=== PATIENT | male | born 1955 | race Two or more races ===

== ENCOUNTER 2018-04-20 04:21 | Emergency (ER) | payer OTHER ==
[~2018-04-20] VITALS: Ht 165.1 cm; Wt 85.8 kg
[2018-04-20 04:37] VITALS: BP 149/93
== END 2018-04-20 06:59 | disposition left against medical advice (07) ==
LOC: ER 04:21
DX: R05 Cough (principal); Z53.21 Procedure and treatment not carried out due to patient leaving prior to being seen by health care provider
CPT/HCPCS: 93005

== ENCOUNTER 2018-12-21 21:08 | Emergency (ER) | payer OTHER ==
[~2018-12-21] VITALS: Ht 165.1 cm; Wt 90.7 kg
[2018-12-21 21:28] VITALS: BP 159/80
[2018-12-21 21:40] LABS: Urine WBC None Seen /hpf (0 - 3)
[2018-12-21 21:48] LABS: Urine Bacteria NONE SEEN /hpf (None Seen); Urine Blood Negative /uL (Negative); Urine Specific Gravity 1.002 (1.001-1.035)
[2018-12-21 22:55] LABS: Basophils # (auto) 0.1 uL; Basophils % (auto) 0.7 % (0.0-2.0); Eosinophils # (auto) 0.1 uL; Eosinophils % (auto) 0.9 % (0.0-7.0); Hematocrit 44.4 % (41.0-53.0); Hemoglobin 15.2 g/dL (13.5-17.5); Lymphocytes # (auto) 2.1 uL; Mean Corpuscular Hemoglobin 27.8 pg (28.0-32.0); Mean Corpuscular Hgb Conc. 34.2 g/dL (32.0-36.0); Mean Corpuscular Volume 81.4 fL (80.0-100.0); Monocytes # (auto) 0.5 uL; Monocytes % (auto) 5.6 % (0.0-12.0); Neutrophils # (auto) 5.4 uL; Neutrophils % (auto) 66.8 % (37.0-80.0); Nucleated Red Blood Cells % 0.1 %; Platelet Count (auto) 245 10^3/uL (140-450); Red Blood Cells 5.45 10^6/uL (4.5-5.90)
[2018-12-21 23:13] LABS: Albumin 3.9 g/dL (3.4-5.0); Calcium 9.4 mg/dL (8.5-10.1); Potassium 4.3 mmol/L (3.5-5.1)
[2018-12-21 23:15] LABS: BUN/Creatinine Ratio 12.3; Bilirubin, Total 0.4 mg/dL (0.2-1.0); Total Protein 7.9 g/dL (6.4-8.2)
[2018-12-22] MEDS ORDERED: METF-370 PO (18:57)
[2018-12-22] MEDS ORDERED: TEMA15CA91 PO (18:57)
[2018-12-22] MEDS ORDERED: GLIP10TA9 PO (18:57)
== END 2018-12-22 02:53 | disposition left against medical advice (07) ==
LOC: ER 21:11
DX: R42 Dizziness and giddiness (principal); R51 Headache; M54.2 Cervicalgia; Z53.21 Procedure and treatment not carried out due to patient leaving prior to being seen by health care provider
CPT/HCPCS: 36415; 70450; 80053; 81001; 82962; 85025

== ENCOUNTER 2018-12-22 06:26 | Inpatient (IN) | payer OTHER ==
[~2018-12-22] VITALS: Ht 165.1 cm; Wt 87.5 kg
[2018-12-22 16:22] LABS: Basophils # (auto) 0 uL; Basophils % (auto) 0.5 % (0.0-2.0); Eosinophils # (auto) 0.1 uL; Eosinophils % (auto) 1.7 % (0.0-7.0); Hematocrit 44.2 % (41.0-53.0); Hemoglobin 14.8 g/dL (13.5-17.5); Lymphocytes # (auto) 1.8 uL; Lymphocytes % (auto) 34.7 % (10.0-50.0); Mean Corpuscular Hemoglobin 27.4 pg (28.0-32.0); Mean Corpuscular Hgb Conc. 33.5 g/dL (32.0-36.0); Mean Corpuscular Volume 81.8 fL (80.0-100.0); Monocytes # (auto) 0.3 uL; Monocytes % (auto) 6.5 % (0.0-12.0); Neutrophils % (auto) 56.6 % (37.0-80.0); Nucleated Red Blood Cells % 0.1 %; Platelet Count (auto) 227 10^3/uL (140-450); Red Cell Distribution Width 14.4 % (11.8-14.3); White Blood Cell 5.2 10^3/uL (4.4-10.8)
[2018-12-22 16:28] LABS: Albumin 3.6 g/dL (3.4-5.0); Calcium 8.8 mg/dL (8.5-10.1); Potassium 4.5 mmol/L (3.5-5.1)
[2018-12-22 16:32] LABS: BUN/Creatinine Ratio 11.5; Bilirubin, Total 0.4 mg/dL (0.2-1.0); Total Protein 7.8 g/dL (6.4-8.2)
[2018-12-22] MEDS ORDERED: DEXTROSE (50%) 50ML SYRG IV PRN (17:30)
[2018-12-22] MEDS ORDERED: LACTULOSE 20Gm/30ML SOLN PO PRN (17:30)
[2018-12-22] MEDS ORDERED: LABETALOL HCL 5 MG/ML ML 20ML VIAL IV PRN (17:30)
[2018-12-22] MEDS ORDERED: NITROGLYCERIN 0.4 MG SL TAB SL PRN (17:30)
[2018-12-22] MEDS ORDERED: MORPHINE SULF INJ 2 MG/ML SYRINGE 1ML IV PRN (17:30)
[2018-12-22] MEDS ORDERED: traMADol HCL 50 MG TAB PO PRN (17:30)
[2018-12-22] MEDS ORDERED: ACETAMINOPHEN 500 MG TAB PO PRN (17:30)
[2018-12-22] MEDS: ASPirin 81 mg TAB PO SCH (17:30)
[2018-12-22] MEDS ORDERED: ASPirin 81 mg TAB PO ONE (17:30)
[2018-12-22] MEDS ORDERED: PROMETHAZINE HCL 25 MG/ML 1ML IV PRN (17:30)
[2018-12-22] MEDS ORDERED: TEMAZEPAM 15 MG CAP PO PRN (17:30)
[2018-12-22 17:54] LABS: Creatine Kinase IFCC 60 U/L (39-308)
[2018-12-22] MEDS: ENOXAPARIN SOD 40 MG/0.4 ML SYRINGE SC SCH (18:12)
[2018-12-22] MEDS: SODIUM CHLORIDE 0.9% 1,000 ML IV SCH (18:12)
--- NOTE | 2018-12-22 18:52 | NUR ---
Telemetry admit from [facility] admitted to Telemetry unit after SBAR received. Patient oriented to Yandy hernández RN, unit, room, bed, and unit policies regarding patient care and visiting hours. Patient now on continuous telemetry monitoring, tele box #[id number] and telemetry reading on arrival to unit is SINUS PERNELL IN THE 50'S. Patient weighed by bedscale and encouraged to call if they need something. All questions and
[2018-12-22] MEDS ORDERED: METF-370 PO (18:57)
[2018-12-22] MEDS ORDERED: GLIP10TA9 PO (18:57)
[2018-12-22] MEDS ORDERED: TEMA15CA91 PO (18:57)
--- NOTE | 2018-12-22 19:40 | NUR ---
Opening Shift Note Assumed care of patient, awake and alert. Patient speaking, translation provided by MICHAEL James. No S/S of distress/SOB or pain. Bed in lowest locked position, side rails up x2, call light within reach, bed alarm on. Instructed on POC and to call for assist PRN, will continue to monitor for changes Q1hr and PRN.
[2018-12-22] MEDS: ACCU-CHEK COMFORT CURVE STRIP VI SCH (20:00)
[2018-12-22] MEDS: InsuLIN REG 1unit/0.01ml Soln (100units/ml) SC SCH (20:48)
[2018-12-22 22:00] VITALS: BP 150/85
[2018-12-22] MEDS ORDERED: ATORVASTATIN 20 MG TAB PO SCH (22:00)
[2018-12-23] MEDS: ACCU-CHEK COMFORT CURVE STRIP VI SCH ×4 (00:03→11:55)
[2018-12-23] MEDS: InsuLIN REG 1unit/0.01ml Soln (100units/ml) SC SCH ×4 (00:03→11:55)
[2018-12-23 05:00] VITALS: BP 159/88
[2018-12-23] MEDS: SODIUM CHLORIDE 0.9% 1,000 ML IV SCH (05:24)
[2018-12-23 06:23] LABS: Cholesterol 145 mg/dL (< 200); HDL Cholesterol 30 mg/dL (40-59); LDL Cholesterol 95 mg/dL (< 100); Triglycerides 172 mg/dL (< 150)
--- NOTE | 2018-12-23 07:00 | NUR ---
Closing Note Urine sample collected and sent. Patient lying in bed, awake and alert. Bed in lowest locked position, side rails up x2, call light within reach, bed alarm on. No s/s of distress. Blood pressure noted to be elevated at 159/88, fluids held at this time, dayshift RN aware. Care endorsed to dayshift RN.
[2018-12-23 07:37] LABS: Urine Bacteria NONE SEEN /hpf (None Seen); Urine Blood Negative /uL (Negative); Urine Mucus FEW (None Seen); Urine Specific Gravity 1.024 (1.001-1.035); Urine WBC 2 /hpf (0 - 3)
[2018-12-23 07:51] LABS: Alcohol, Urine < 3.0 mg/dL (0-5); Amphetamine Screen, Urine NEGATIVE (NEGATIVE); Barbiturate Scree,Urine NEGATIVE (NEGATIVE); Benzodiazephine Screen, Urine NEGATIVE (NEGATIVE); Cannabinoid Screen, Urine NEGATIVE (NEGATIVE); Cocaine Screen, Urine NEGATIVE (NEGATIVE); Opiate Scree,Urine NEGATIVE (NEGATIVE); Phencyclidine Screen, Urine NEGATIVE (NEGATIVE)
[2018-12-23 08:00] VITALS: BP 158/92
[2018-12-23 08:45] VITALS: BP 158/92
[2018-12-23] MEDS ORDERED: PANTOPRAZOLE 40 MG TAB PO SCH (10:00)
[2018-12-23] MEDS: ENOXAPARIN SOD 40 MG/0.4 ML SYRINGE SC SCH (10:13)
[2018-12-23] MEDS: ASPirin 81 mg TAB PO SCH (10:14)
[2018-12-23 13:00] VITALS: BP 160/94
--- NOTE | 2018-12-23 14:36 | NUR ---
Discharge instructions given as ordered. Encourage to follow up with PMD as instructed. All questions and concerns addressed. Patient verbalized understanding. Medication reconciliation form completed and copy given to patient. Home medications held in Pharmacy returned to patient, and needed vaccines given. IV removed with catheter intact, pressure dressing applied. Telemetry unit returned to ICU. Patient taken to vehicle via wheelchair with all personal belongings, accompanied by staff. Patient drove himself home. No distress noted at time of departure.
== END 2018-12-23 13:50 | disposition home or self-care (01) | DRG 638 ==
LOC: ER 06:26 → TELE-WESTW 06:27 → ER 11:40 → TELE-WESTW 19:03
PROVIDERS: ADMIT Internal Medicine; ATTEND Internal Medicine
DX: E11.65 Type 2 diabetes mellitus with hyperglycemia (principal); G45.9 Transient cerebral ischemic attack, unspecified; E87.1 Hypo-osmolality and hyponatremia; I10 Essential (primary) hypertension; E66.9 Obesity, unspecified; E78.5 Hyperlipidemia, unspecified; E78.1 Pure hyperglyceridemia; Z91.14 Patient's other noncompliance with medication regimen; Z68.32 Body mass index [BMI] 32.0-32.9, adult
CPT/HCPCS: 36415; 71045; 80053; 80061; 80307; 81001; 82550; 82962; 83036; 84484; 85025; 85652; 93005; 96360; 96372; G0378; J1815

== ENCOUNTER 2019-09-25 20:57 | Emergency (ER) | payer OTHER ==
[~2019-09-25] VITALS: Ht 165.1 cm; Wt 88.5 kg
[~2019-09-25 20:57] MED LIST: GLIP10TA9 PO; METF-370 PO; TEMA15CA91 PO
[2019-09-25 21:30] VITALS: BP 155/71
[2019-09-26] MEDS ORDERED: KETOROLAC TROMETH 60MG/2ML VIAL IM ONE (01:15)
== END 2019-09-26 01:36 | disposition home or self-care (01) ==
LOC: ER 20:57
DX: R51 Headache (principal); M50.30 Other cervical disc degeneration, unspecified cervical region; E11.9 Type 2 diabetes mellitus without complications; E78.5 Hyperlipidemia, unspecified; I10 Essential (primary) hypertension
CPT/HCPCS: 70450; 72125; 82962; 96372; 99285; J1885

== ENCOUNTER 2019-10-09 04:13 | Emergency (ER) | payer OTHER ==
[~2019-10-09] VITALS: Ht 165.1 cm; Wt 86.2 kg
[2019-10-09 04:40] VITALS: BP 144/81
== END 2019-10-09 05:27 | disposition left against medical advice (07) ==
LOC: ER 04:13
DX: F41.9 Anxiety disorder, unspecified (principal); Z53.21 Procedure and treatment not carried out due to patient leaving prior to being seen by health care provider

== ENCOUNTER 2019-10-09 14:37 | Emergency (ER) | payer OTHER ==
[~2019-10-09] VITALS: Ht 165.1 cm; Wt 86.2 kg
[2019-10-09 15:03] VITALS: BP 163/92
== END 2019-10-09 19:32 | disposition left against medical advice (07) ==
LOC: ER 14:37
DX: F41.9 Anxiety disorder, unspecified (principal); Z53.21 Procedure and treatment not carried out due to patient leaving prior to being seen by health care provider

== ENCOUNTER 2019-10-10 18:21 | Emergency (ER) | payer OTHER ==
[~2019-10-10] VITALS: Ht 165.1 cm; Wt 86.2 kg
[2019-10-10 18:44] VITALS: BP 173/86
[2019-10-10] MEDS ORDERED: KETOROLAC TROMETH 60MG/2ML VIAL IM ONE (20:00)
[2019-10-10 22:30] LABS: Basophils # (auto) 0 10 ^3/uL (0-0.2); Basophils % (auto) 0.3 % (0.0-2.0); Eosinophils # (auto) 0.1 10 ^3/uL (0-0.8); Eosinophils % (auto) 1.3 % (0.0-7.0); Hematocrit 44.7 % (41.0-53.0); Lymphocytes # (auto) 2.5 10 ^3/uL (0.4-5.4); Lymphocytes % (auto) 32.3 % (10.0-50.0); Mean Corpuscular Hemoglobin 27.4 pg (28.0-32.0); Mean Corpuscular Hgb Conc. 33.5 g/dL (32.0-36.0); Mean Corpuscular Volume 81.7 fL (80.0-100.0); Monocytes # (auto) 0.7 10 ^3/uL (0-1.3); Monocytes % (auto) 8.7 % (0.0-12.0); Neutrophils # (auto) 4.5 10 ^3/uL (1.6-8.6); Neutrophils % (auto) 57.4 % (37.0-80.0); Nucleated Red Blood Cells % 0.4 %; Platelet Count (auto) 268 10^3/uL (140-450); Red Blood Cells 5.47 10^6/uL (4.5-5.90); White Blood Cell 7.8 10^3/uL (4.4-10.8)
[2019-10-10 22:43] LABS: Calcium 9.6 mg/dL (8.5-10.1)
[2019-10-10 22:48] LABS: Albumin 4.6 g/dL (3.4-5.0); BUN/Creatinine Ratio 18.1; Bilirubin, Total 0.5 mg/dL (0.2-1.0); Total Protein 8.9 g/dL (6.4-8.2)
== END 2019-10-10 23:15 | disposition home or self-care (01) ==
LOC: ER 18:21
DX: B02.9 Zoster without complications (principal)
CPT/HCPCS: 36415; 80053; 85025; 96372; 99283; J1885

== ENCOUNTER 2022-12-26 17:44 | Emergency (ER) | payer MEDICARE, OTHER ==
[~2022-12-26] VITALS: Ht 165.1 cm; Wt 88.5 kg
[~2022-12-26 17:44] MED LIST changes: +TEMA15CA2 PO; -TEMA15CA91 PO
[2022-12-26] MEDS ORDERED: SODIUM CHLORIDE 0.9% 500 ML IV ONE (18:30)
[2022-12-26] MEDS ORDERED: InsuLIN REG 1unit/0.01ml Soln (100units/ml) IV ONE (18:30)
[2022-12-26 19:18] LABS: Basophils # (auto) 0 10 ^3/uL (0-0.2); Basophils % (auto) 0.7 % (0.0-2.0); Eosinophils # (auto) 0.2 10 ^3/uL (0-0.8); Eosinophils % (auto) 3.2 % (0.0-7.0); Hemoglobin 14.1 g/dL (13.5-17.5); Lymphocytes # (auto) 2.2 10 ^3/uL (0.4-5.4); Lymphocytes % (auto) 35.1 % (10.0-50.0); Mean Corpuscular Hgb Conc. 33.5 g/dL (32.0-36.0); Mean Corpuscular Volume 83.6 fL (80.0-100.0); Monocytes # (auto) 0.5 10 ^3/uL (0-1.3); Monocytes % (auto) 7.3 % (0.0-12.0); Neutrophils # (auto) 3.4 10 ^3/uL (1.6-8.6); Neutrophils % (auto) 53.7 % (37.0-80.0); Red Blood Cells 5.02 10^6/uL (4.5-5.90); Red Cell Distribution Width 14.5 % (11.8-14.3); White Blood Cell 6.3 10^3/uL (4.4-10.8)
[2022-12-26 19:36] LABS: Alanine Aminotransferase 50 U/L (7-40); Albumin 4.4 g/dL (3.2-4.8); Alkaline Phosphatase 79 U/L (46-116); Anion Gap 4 (5-15); Aspartate Aminotransferase 32 U/L (13-40); BUN/Creatinine Ratio 21.4 (10.0-20.0); Bilirubin, Total 0.3 mg/dL (0.2-1.0); Blood Urea Nitrogen 28 mg/dL (9-23); Calcium 9.6 mg/dL (8.7-10.4); Carbon Dioxide 28 mmol/L (20-30); Chloride 100 mmol/L (98-107); Glucose 392 mg/dL (74-106); Potassium 4.9 mmol/L (3.5-5.1); Sodium 132 mmol/L (136-145); Total Protein 7.1 g/dL (5.7-8.2)
[2022-12-26] MEDS ORDERED: SITA100T7 PO (20:53)
[2022-12-26 21:13] LABS: Urine Bacteria NONE SEEN /hpf (None Seen); Urine Blood Negative /uL (Negative); Urine Clarity Clear (Clear); Urine Color Yellow (Yellow); Urine Protein, UAD Negative (Negative); Urine Specific Gravity 1.029 (1.001-1.035); Urine Urobilinogen Normal (Negative); Urine WBC 1 /hpf (0 - 3)
[2022-12-26 21:25] VITALS: BP 134/77; PULSE 63; RESP 20; TEMP 97.7; O2SAT 96
== END 2022-12-26 21:29 | disposition home or self-care (01) ==
LOC: ER 17:44
DX: E11.65 Type 2 diabetes mellitus with hyperglycemia (principal); I10 Essential (primary) hypertension; E78.5 Hyperlipidemia, unspecified; Z79.84 Long term (current) use of oral hypoglycemic drugs; Z79.899 Other long term (current) drug therapy
CPT/HCPCS: 36415; 80053; 81001; 82962; 85025; 99283; J1815

== ENCOUNTER 2023-04-04 20:55 | Emergency (ER) | payer MEDICARE, MEDICAID ==
[~2023-04-04] VITALS: Ht 165.1 cm; Wt 85.0 kg
[~2023-04-04 20:55] MED LIST changes: +SITA100T7 PO
[2023-04-04 21:49] LABS: Urine Bacteria FEW /hpf (None Seen); Urine Blood Negative /uL (Negative); Urine Clarity Clear (Clear); Urine Color Yellow (Yellow); Urine Protein, UAD Negative (Negative); Urine Specific Gravity 1.021 (1.001-1.035); Urine Urobilinogen Normal (Negative); Urine WBC 2 /hpf (0 - 3)
[2023-04-05] MEDS ORDERED: DOXY-286 PO ×3 (00:13→00:45)
[2023-04-05] MEDS ORDERED: ACET-6 PO ×3 (00:13→00:45)
[2023-04-05 00:37] VITALS: BP 139/70
[2023-04-05 00:39] VITALS: PULSE 54; RESP 18; O2SAT 97
== END 2023-04-05 00:48 | disposition home or self-care (01) ==
LOC: ER 20:55
DX: N43.3 Hydrocele, unspecified (principal); I10 Essential (primary) hypertension; E11.9 Type 2 diabetes mellitus without complications; E78.5 Hyperlipidemia, unspecified; Z79.2 Long term (current) use of antibiotics; Z79.899 Other long term (current) drug therapy
CPT/HCPCS: 76870; 81001

== ENCOUNTER 2024-05-17 21:09 | Emergency (ER) | payer OTHER, MEDICAID ==
[~2024-05-17] VITALS: Ht 165.1 cm; Wt 86.5 kg
[~2024-05-17 21:09] MED LIST changes: +ACET-6 PO; +DOXY-286 PO
--- NOTE | 2024-05-17 21:39 | ED.PDOC ---
General HPI Comments HPI: Poor Historian. 69-year-old male presents to ED for evaluation of two week history of right flank pain nonradiating constant. No other alleviating or precipitating factors. Denies any urinary symptoms. PMHX:DM, High Lipids and HTN SHX: Denies Any REVIEW OF SYSTEMS: CONSTITUTIONAL: Denies acute: fever, diaphoresis, chills, generalized weakness. HEAD: Denies acute: headache, photophobia Eyes: Denies acute: Double vision, vision loss, eye pain, eye discharge. EARS: Denies acute: tinnitus, hearing loss, ear discharge, ear pain, THROAT: Denies acute: sore throat, swelling, difficulty swallowing , pain with swallowing, change in voice. NECK: Denies acute: neck pain, neck swelling, stiff neck. HEART: Denies acute : chest pain, palpitations, LUNGS: Denies acute: SOB, wheezing, cough, hemoptysis ABDOMEN: Denies acute: abdominal pain, Nausea, Vomiting, diarrhea, melena , hematemesis, hematochezia SKIN: Denies acute: rash, redness, lesions, itchiness. EXTREMITIES: Denies acute: calf pain, numbness, tingling, weakness, denies pain in extremity. Denies acute: Low back pain. Neuro: Denies acute: focal neurological deficit, motor or sensory focal neurological deficit, tremors, seizure like activity, confusion, dizziness, change in mental status, loss of bowel or bladder function, cauda equina like symptoms. : Denies acute: dysuria, hematuria, increase in urinary frequency. PSYCH: Denies acute: hallucination, suicidal ideation, homicidal ideation. PHYSICAL EXAM: General: no acute distress, awake and alert. Head: normocephalic, atraumatic. Neck: supple, trachea is midline, no swelling. Throat: Normal phonation. Eyes:, no erythema, no purulent discharge, no proptosis, no icterus. Heart: regular rate, regular rhythm, no significant murmur appreciated. Lungs: no apparent respiratory distress, Able to speak in full sentences. No wheezing, no rhonchi, no crackles. No stridors Clear to auscultation bilaterally. Abdomen: non tender to palpation, non distended, soft, no guarding, no rebound, + bowel sounds. Neuro: Awake, Alert, oriented to name, self, situation, follows commands GCS=15. Speech is normal. Skin: no petechia, no purpura, no cyanosis, non-pale, not jaundice. Lower extremities: --no - Pitting edema no deformity, no focal swelling, no calf TTP. Makes eye contact. moves all four extremities. Face: no apparent facial droop. Right CVA tenderness to percussion . Ambulating in the ED independently. ED COURSE: Chief Complaint: Flank Pain Time Seen by MD: 21:25 Primary Care Provider: UNKNOWN Reviewed notes: Nurses Notes, Medications, Allergies Allergies: Coded Allergies: NO KNOWN ALLERGIES (Unverified , 04/20/18) Home Meds Active Scripts Doxycycline Hyclate (DOXYCYCLINE HYCLATE) 100 Mg Tab, 1 TAB PO BID for 10 Days, #20 TAB Prov:RAIMUNDOLENKADewayneELISABETAaron S DO 04/05/23 Acetaminophen (Acetaminophen Extra Stren) 500 Mg Tab, 500 MG PO QIDPRN for 10 Days, #40 TAB Prov:JOSE LUISLOREEYAMIL S DO 04/05/23 Sitagliptin Phosphate (Januvia) 100 Mg Tab, 1 TAB PO DAILY, #90 TAB 1 Refill Prov:ZEUS GARCIA MD 12/26/22 Reported Medications Temazepam (Restoril) 15 Mg Cp, 1 CAP PO QPM, #30 CAP 1 Refill 12/22/18 Metformin Hydrochloride (Metformin Hcl) 500 Mg Tab, 1000 MG PO BID for 30 Days, MG 12/22/18 Glipizide (Glipizide) 10 Mg Tab, 40 MG PO BID for 30 Days, MG 12/22/18 Information Source: Patient Mode of Arrival: Ambulatory Severity: Moderate Timing: Weeks Duration: Since onset Prehospital treatment: None Onset: Spontaneous Symptoms: None History of: None Location: (R) Flank Penile discharge: None associated signs and symptoms: Flank Pain Past Medical History PAST MEDICAL HISTORY: DM, High Lipids, HTN Surgical History: Denies all surgeries Family History Family History: Reviewed,noncontributory to illness, Unknown Social History Smoker: Non-Smoker Alcohol: Denies ETOH Use Drugs: Denies Drug Use Lives In: Home Was a procedure done? Was a procedure done?: No Differential Diagnosis Kidney stone (Female): N/A Kidney stone (Male): Other (Flank Pain;DDX include Nephrolethiasis, obstructive uropathy, kidney cancer, renal infarct, intraabdominal neoplasm, lower lobe pneumonia, retroperitoneal hemorrhage, pancreatitis, aneurysm, dissection, musculoskeletal, rib contusion/trauma, hematoma, PYLONEPHRITIS, muscle strain, spinal disease.) X-Ray, Labs, Meds, VS Vital Signs Date Time Temp Pulse Resp B/P (MAP) Pulse Ox O2 Delivery O2 Flow Rate FiO2 05/18/24 01:19 67 16 154/71 (98) 96 05/17/24 21:28 98.7 69 18 137/114 (122) 96 Lab Test 05/17/24 21:53 05/17/24 21:30 Range/Units White Blood Count 7.6 4.4-10.8 10^3/uL Red Blood Count 4.97 4.5-5.90 10^6/uL Hemoglobin 14.1 13.5-17.5 g/dL Hematocrit 40.5 L 41.0-53.0 % Mean Corpuscular Volume 81.4 80.0-100.0 fL Mean Corpuscular Hemoglobin 28.4 28.0-32.0 pg Mean Corpuscular Hemoglobin Concent 34.8 32.0-36.0 g/dL Red Cell Distribution Width 14.9 H 11.8-14.3 % Platelet Count 266 140-450 10^3/uL Mean Platelet Volume 7.1 6.9-10.8 fL Neutrophils (%) (Auto) 46.9 37.0-80.0 % Lymphocytes (%) (Auto) 42.6 10.0-50.0 % Monocytes (%) (Auto) 8.2 0.0-12.0 % Eosinophils (%) (Auto) 1.7 0.0-7.0 % Basophils (%) (Auto) 0.6 0.0-2.0 % Neutrophils # (Auto) 3.6 1.6-8.6 10 ^3/uL Lymphocytes # (Auto) 3.3 0.4-5.4 10 ^3/uL Monocytes # (Auto) 0.6 0-1.3 10 ^3/uL Eosinophils # (Auto) 0.1 0-0.8 10 ^3/uL Basophils # (Auto) 0 0-0.2 10 ^3/uL Nucleated Red Blood Cells 0.0 % Sodium Level 140 136-145 mmol/L Potassium Level 4.5 3.5-5.1 mmol/L Chloride Level 104 98-107 mmol/L Carbon Dioxide Level 28 20-31 mmol/L Anion Gap 8 5-15 Blood Urea Nitrogen 13 9-23 mg/dL Creatinine 1.22 0.700-1.30 mg/dL Glomerular Filtration Rate Calc 63 >90 mL/min BUN/Creatinine Ratio 10.7 10.0-20.0 Serum Glucose 98 74-106 mg/dL Lactic Acid Level 1.2 0.4-2.0 mmol/L Calcium Level 10.7 H 8.7-10.4 mg/dL Total Bilirubin 0.3 0.2-1.0 mg/dL Aspartate Amino Transferase (AST) 22 13-40 U/L Alanine Aminotransferase (ALT) 33 7-40 U/L Alkaline Phosphatase 83 46-116 U/L Troponin I High Sensitivity 8 </=54 ng/L Total Protein 7.8 5.7-8.2 g/dL Albumin 4.9 H 3.2-4.8 g/dL Lipase 59 H 12-53 U/L Urine Color Light-yellow Yellow Urine Clarity Clear Clear Urine pH 5.5 5.0-9.0 Urine Specific [place] 1.020 1.001-1.035 Urine Protein Negative Negative Urine Ketones Negative Negative Urine Blood Negative Negative /uL Urine Nitrite Negative Negative Urine Bilirubin Negative Negative Urine Urobilinogen Normal Negative mg/dL Urine Leukocyte Esterase Negative Negative /uL Urine RBC 1 0 - 3 /hpf Urine Microscopic WBC < 1 0-3 /HPF Urine Squamous Epithelial Cells None seen <5 /hpf Urine Bacteria None seen None Seen /hpf Urine Glucose Normal Normal mg/dL Current Medications Medications (Trade) Dose Ordered Sig/Abril Route Start Time Stop Time Status Last Admin Acetaminophen/ Hydrocodone Bitart ([place] 5/325MG Tab) 1 tab ONCE ONCE PO 05/17/24 23:15 05/17/24 23:16 DC 05/18/24 01:[address] [address] Ph: [phone] DIAGNOSTIC IMAGING Diagnostic Imaging Report : [id number] Signed PATIENT: WHEELERTONE ADRIAN ACCT: [id number] UNIT: [id number] : 1955 LOC: ER ROOM / BED: / AGE / SEX: 69 / M ADM STATUS: REG ER SERVICE 36 ORDERING PHYSICIAN: RASHAUN CARBAJAL DO PROCEDURE(s): ABPL - CT AB PEL WO CON-NO ORAL OR IV REASON: R flank pain ORDER NUMBER(s): [id number], ACCESSION NUMBER(s): [id number] Exam: CT AB PEL WO CON-NO ORAL OR IV History: R flank pain Comparison Study: None Contrast: None TECHNIQUE: Multidetector CT of abdomen and pelvis without IV contrast. Radiation Dose Information: CT Dose: CTDI volume is 15.6 mGy. Dose-length product is 970.29 mGy*cm FINDINGS: Lung bases demonstrate a nodule in the lateral left lower lobe measures 5.8 mm[address] Follow-up CT examination of the chest is suggested for further assessment. Heart is slightly enlarged and there is atherosclerotic disease involving the coronary arteries lower esophagus is unremarkable. There is bilateral minimal perinephric stranding. The spleen is unremarkable. Stomach is filled with material. Gallbladder demonstrates a possible tiny polyp seen on image 36 of the axial images. Adrenals are unremarkable. Pancreas is unremarkable. Common bile duct is prominent measuring 11.8 mm in caliber which is abnormal I do not see a definite obstruction of the common bile. Head of the pancreas is normal. The appendix is normal. The terminal ileum is unremarkable. Bladder and prostate appear to be within normal limits. There is fat in the inguinal canals bilaterally there are multiple diverticuli in the descending colon without definite diverticulitis sigmoid colon is normal. Liver is 17.9 cm in span which is still within normal limits use 18.[address] is a cutoff hepatomegaly. There are degenerative changes involving the anterior inferior iliac spines patient has some evidence for disc disease involving the lumbosacral thoracic spine. The spleen is enlarged 13.6 cm. Pancreas is unremarkable. There are patchy calcifications abdominal aorta in the renal arteries and in the common iliacs. No aneurysm. IMPRESSION: Diverticulosis .Enlarged Spleen. Generalized catherosclerosis involving the coronary arteries also the abdominal aorta and its branches. ATED BY: SAMUEL LÓPEZ MD DICTATED DATE/TIME: 05/17/242207 SIGNED BY: SAMUEL LÓPEZ MD SIGNED DATE/TIME: 05/17/242207 CC: Time of 1ST Reevaluation: 21:55 Reevaluation 1ST: Unchanged Patient Education/Counseling: Diagnosis, Treatment Family Education/Counseling: No Family Present Comments Patient presented with the above HPI.-flank pain-----workup was initiated. patient was found with the above mentioned diagnosis. the following medications were ordered: please refer to order lists of meds and tests obtained by myself Dr. Carbajal. Patient ED course and VS have been stabilized. Patient has been reassessed in the ED and remained in a stable condition. Pertinent incidental findings were discussed with the patient and/or family. Patient/family voices understanding and is agreeable with plan. Patient has been observed in the ED adequate length of time to insure improvement/stability. Escalation of care considered: Consideration of escalation to observation or admission Patient was DISCHARGED home in a stable condition. All the reports of any imaging studies that were ordered by myself were reviewed by myself. Departure 1 Departure Time of Disposition: 23:03 Impression: Primary Impression: Right flank pain Additional Impression: Spleen enlarged Disposition: 01 HOME / SELF CARE / HOMELESS Condition: Stable Additional Instructions: Additional discharge instructions: You MUST follow-up with your primary care/family doctor in 1 to 2 days. If you are unable to see your primary care/family doctor, please return to our emergency room for re-assessment and re-evaluation in 1 to 2 days. Return to the emergency room here in our facility or to the nearest ER [facility] if your symptoms change or worsen. CONSULTATIONS: you MUST Follow-up for consultation as soon as possible with: -urology in 1-2 days. Please call for appointment. You MUST call the consultants office yourself to make an appointment. You may need to arrange that through your insurance and/or your primary/family doctor. If you are unable to see the relationship consultant in 1 to 2 days, you must return to our emergency room (or any other ER of your choice) for re-assessment and re- evaluation. Adequate fluid hydration. Below is a copy of your radiological report for follow up: [address] [address] Ph: [phone] DIAGNOSTIC IMAGING Diagnostic Imaging Report : [id number] Signed PATIENT: TRISTA GARDNER ACCT: [id number] UNIT: [id number] : 11/01/1991 LOC: ER ROOM / BED: / AGE / SEX: 32 / M ADM STATUS: REG ER SERVICE 1742 ORDERING PHYSICIAN: RASHAUN CARBAJAL DO PROCEDURE(s): ABPLIV - CT AB PEL WITH IV CON ONLY REASON: rectal bleed ORDER NUMBER(s): [id number], ACCESSION NUMBER(s): [id number] Exam: CT AB PEL WITH IV CON ONLY History: rectal bleed Comparison Study: None Contrast: Type of contrast: Contrast injected: Contrast wasted: 0 TECHNIQUE: Multidetector CT of abdomen and pelvis IV contrast. Radiation Dose Information: CT Dose: CTDI volume is 24.43 mGy. Dose-length product is 1600.48 mGy*cm FINDINGS: Lung bases are clear. Heart size is normal. Lower esophagus is still probably normal Patient has a diffusely fatty infiltrated liver Spleen is enlarged at 13.94 cm. Pancreas is unremarkable gallbladder is unremarkable. Common bile duct is normal. Adrenals kidneys are normal. The appendix is unremarkable. Bladder: Small bowel are normal. Liver is enlarged 20.4 cm. Duodenum is normal stomach mucosa is unremarkable.. Bone density is normal no focal lesions in the IMPRESSION: 1. Hepatosplenomegaly and diffusely fatty infiltrated liver. ATED BY: SAMUEL LÓPEZ MD DICTATED DATE/TIME: 05/17/242042 SIGNED BY: SAMUEL LÓPEZ MD SIGNED DATE/TIME: 05/17/242042 CC: Discharged With: Self Critical Care Note Critical Care Time?: No I personally scribed for RASHAUN CARBAJAL DO ([email or web address]) on 05/17/24 at 21:39. Electronically submitted by Warren Philippe ([email or web address]). I personally scribed for RASHAUN CARBAJAL DO ([email or web address]) on 05/17/24 at 23:38. Electronically submitted by Khari Do ([email or web address]). RASHAUN CARBAJAL DO May 17, 2024 21:39
[2024-05-17 21:44] LABS: Urine Bacteria None Seen /hpf (None Seen)
[2024-05-17 21:57] LABS: Urine Blood Negative /uL (Negative); Urine Clarity Clear (Clear); Urine Color Light-Yellow (Yellow); Urine Protein, UAD Negative (Negative); Urine Squamous Epithelial Cell None Seen /hpf (<5); Urine Urobilinogen Normal (Negative); Urine WBC < 1 /HPF (0-3); Urine pH 5.5 (5.0-9.0)
--- NOTE | 2024-05-17 22:10 | DVH ---
Exam: CT AB PEL WO CON-NO ORAL OR IV History: R flank pain Comparison Study: None Contrast: None TECHNIQUE: Multidetector CT of abdomen and pelvis without IV contrast. Radiation Dose Information: CT Dose: CTDI volume is 15.6 mGy. Dose-length product is 970.29 mGy*cm FINDINGS: Lung bases demonstrate a nodule in the lateral left lower lobe measures 5.8 mm[address] Follow-up CT examina tion of the chest is suggested for further assessment. Heart is slightly enlarged and there is atherosclerotic disease involving the coronary arteries lower esophagus is unremarkable. There is bilateral minimal perinephric stranding. The spleen is unremarkable. Stomach is filled with material. Gallbladder demonstrates a possible tiny polyp seen on image 36 of the axial images. Adrenals are unremarkable. Pancreas is unremarkable. Co mmon bile duct is prominent measuring 11.8 mm in caliber which is abnormal I do not see a definite ob struction of the common bile. Head of the pancreas is normal. The appendix is normal. The terminal i leum is unremarkable. Bladder and prostate appear to be within normal limits. There is fat in the in guinal canals bilaterally there are multiple diverticuli in the descending colon without definite div erticulitis sigmoid colon is normal. Liver is 17.9 cm in span which is still within normal limits use 18.[address] is a cutoff hepatomegaly. There are degenerative changes involving the anterior inferior iliac spines patient has some evidence for disc disease involving the lumbosacral thoracic spine. The spleen is enlarged 13.6 cm. Pancreas is unremarkable. There are patchy calcifications abdominal aorta in the renal arteries and in the common iliacs. No an eurysm. IMPRESSION: Diverticulosis .Enlarged Spleen. Generalized catherosclerosis involving the coronary arteries also the abdominal aorta and its branche s.
[2024-05-17 22:12] LABS: Basophils # (auto) 0 10 ^3/uL (0-0.2); Basophils % (auto) 0.6 % (0.0-2.0); Eosinophils # (auto) 0.1 10 ^3/uL (0-0.8); Eosinophils % (auto) 1.7 % (0.0-7.0); Hematocrit 40.5 % (41.0-53.0); Hemoglobin 14.1 g/dL (13.5-17.5); Lymphocytes # (auto) 3.3 10 ^3/uL (0.4-5.4); Lymphocytes % (auto) 42.6 % (10.0-50.0); Mean Corpuscular Hemoglobin 28.4 pg (28.0-32.0); Mean Corpuscular Hgb Conc. 34.8 g/dL (32.0-36.0); Mean Corpuscular Volume 81.4 fL (80.0-100.0); Monocytes # (auto) 0.6 10 ^3/uL (0-1.3); Monocytes % (auto) 8.2 % (0.0-12.0); Neutrophils # (auto) 3.6 10 ^3/uL (1.6-8.6); Neutrophils % (auto) 46.9 % (37.0-80.0); Platelet Count (auto) 266 10^3/uL (140-450); Red Blood Cells 4.97 10^6/uL (4.5-5.90); Red Cell Distribution Width 14.9 % (11.8-14.3); White Blood Cell 7.6 10^3/uL (4.4-10.8)
[2024-05-17 22:25] LABS: Alanine Aminotransferase 33 U/L (7-40); Alkaline Phosphatase 83 U/L (46-116); Anion Gap 8 (5-15); BUN/Creatinine Ratio 10.7 (10.0-20.0); Blood Urea Nitrogen 13 mg/dL (9-23); Carbon Dioxide 28 mmol/L (20-31); Chloride 104 mmol/L (98-107); Glucose 98 mg/dL (74-106); Potassium 4.5 mmol/L (3.5-5.1); Sodium 140 mmol/L (136-145); Total Protein 7.8 g/dL (5.7-8.2)
[2024-05-17 22:26] LABS: Aspartate Aminotransferase 22 U/L (13-40); Bilirubin, Total 0.3 mg/dL (0.2-1.0)
[2024-05-17 22:29] LABS: Albumin 4.9 g/dL (3.2-4.8); Calcium 10.7 mg/dL (8.7-10.4); Lipase 59 U/L (12-53)
[2024-05-18] MEDS: HYDROcodone-ACET 5/325MG TAB PO ONE (01:13)
[2024-05-18 01:19] VITALS: BP 154/71; PULSE 67; RESP 16; O2SAT 96
== END 2024-05-18 01:20 | disposition home or self-care (01) ==
LOC: ER 21:09
DX: Q89.09 Congenital malformations of spleen (principal); R10.9 Unspecified abdominal pain; I10 Essential (primary) hypertension; E11.9 Type 2 diabetes mellitus without complications; E78.5 Hyperlipidemia, unspecified; Z79.84 Long term (current) use of oral hypoglycemic drugs; Z79.2 Long term (current) use of antibiotics; Z79.899 Other long term (current) drug therapy
CPT/HCPCS: 36415; 74176; 80053; 81001; 83605; 83690; 84484; 85025

== ENCOUNTER 2024-08-10 22:16 | Emergency (ER) | payer OTHER, MEDICAID ==
[~2024-08-10] VITALS: Ht 165.1 cm; Wt 86.5 kg
--- NOTE | 2024-08-10 22:36 | ED.PDOC ---
History of Present Illness HPI Comments 69 year old Citizen Of [place] Speaking male presents to the ED with a PMHx of DM, HTN, and High Lipids associated to the c/c of Painful urination. Pt states that his pain has been onset for the past 2x days with no alleviating factors at this point in time. Pt notes that he only has pain upon urination but no pain afterwards. Pt denies any other associated symptoms, modifiers, recent injuries or sick contacts present at this time. Time Seen by MD: 22:32 Primary Care Provider: UNKNOWN Reviewed Notes: Nurses Notes, Medications, Allergies Allergies: Coded Allergies: NO KNOWN ALLERGIES (Unverified , 04/20/18) Home Meds Active Scripts Ciprofloxacin Hcl (Cipro) 250 Mg Tab, 250 MG PO BID for 10 Days, #20 TAB Prov:NILA HAIDER MD 08/10/24 Doxycycline Hyclate (DOXYCYCLINE HYCLATE) 100 Mg Tab, 1 TAB PO BID for 10 Days, #20 TAB Prov:YAMIL EUBANKS S DO 04/05/23 Acetaminophen (Acetaminophen Extra Stren) 500 Mg Tab, 500 MG PO QIDPRN for 10 Days, #40 TAB Prov:YAMIL EUBANKS S DO 04/05/23 Sitagliptin Phosphate (Januvia) 100 Mg Tab, 1 TAB PO DAILY, #90 TAB 1 Refill Prov:ZEUS GARCIA MD 12/26/22 Reported Medications Temazepam (Restoril) 15 Mg Cp, 1 CAP PO QPM, #30 CAP 1 Refill 12/22/18 Metformin Hydrochloride (Metformin Hcl) 500 Mg Tab, 1000 MG PO BID for 30 Days, MG 12/22/18 Glipizide (Glipizide) 10 Mg Tab, 40 MG PO BID for 30 Days, MG 12/22/18 Information Source: Patient Mode of Arrival: Ambulatory Severity: Moderate Timing: Days Duration: Since onset, Days Prehospital treatment: None Past Medical History PAST MEDICAL HISTORY: DM, High Lipids, HTN Surgical History: Denies all surgeries Family History Family History: Reviewed,noncontributory to illness, Unknown Social History Smoker: Non-Smoker Alcohol: Denies ETOH Use Drugs: Denies Drug Use Lives In: Home Constitutional: denies: chills, diaphoresis, fatigue, fever, malaise, sweats, weakness, others EENTM: denies: blurred vision, double vision, ear bleeding, ear discharge, ear drainage, ear pain, ear ringing, eye pain, eye redness, hearing loss, mouth pain, mouth swelling, nasal discharge, nose bleeding, nose congestion, nose pain, photophobia, tearing, throat pain, throat swelling, voice changes, others Respiratory: denies: cough, hemoptysis, orthopnea, SOB at rest, shortness of breath, SOB with excertion, stridor, wheezing, others 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: denies: chest pain, dizzy spells, diaphoresis, Dyspnea on exertion, edema, irregular heart beat, left arm pain, lightheadedness, palpitations, PND, syncope, others Gastrointestinal: denies: abdomen distended, abdominal pain, blood streaked bowels, constipated, diarrhea, dysphagia, difficulty swallowing, hematemesis, melena, nausea, poor appetite, poor fluid intake, rectal bleeding, rectal pain, vomiting, others Genitourinary: reports: pain (painful urination); denies: burning, dysuria, flank pain, frequency, hematuria, incontinence, penile discharge, penile sore, testicle pain, testicle swelling, urgency, others Neurological: denies: dizziness, fainting, headache, left sided numbness, left sided weakness, numbness, paresthesia, pre-existing deficit, right sided numbness, right sided weakness, seizure, speech problems, tingling, tremors, weakness, others Musculoskeletal: denies: back pain, gout, joint pain, joint swelling, muscle pain, muscle stiffness, neck pain, others Integumetry: denies: bruises, change in color, change in hair/nails, dryness, laceration, lesions, lumps, rash, wounds, others Allergic/Immunocompromised: denies: Difficulty Healing, Frequent Infections, Hives, Itching, others Hematologic/Lymphatic: denies: anemia, blood clots, easy bleeding, easy bruising, swollen glands, others Endocrine: denies: excessive hunger, excessive sweating, excessive thirst, excessive urination, flushing, intolerance to cold, intolerance to heat, unexplained weight gain, unexplained weight loss, others Psychiatric: denies: anxiety, bipolar disorder, depression, hopeless, panic disorder, schizophrenia, sleepless, suicidal, others All Other Systems: Reviewed and Negative Physical Exam General Appearance: No Apparent Distress, Obese HEENT: Normal ENT Inspection, TMs Normal Neck: Full Range of Motion, Non-Tender, Normal Respiratory: Chest Non-Tender, Lungs Clear, No Accessory Muscle Use, No Respiratory Distress, Normal Breath Sounds 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: No Edema, No JVD, Normal Peripheral Pulses, Regular Rate/Rhythm Breast Exam: Deferred Gastrointestinal: Non Tender, Soft Genitalia: Deferred Pelvic: Deferred Rectal: Deferred Extremities: No calf tenderness, Normal capillary refill, Normal inspection, Normal range of motion, Non-tender, No pedal edema Musculoskeletal : Apperance: Normal Neurologic: Alert, No Motor Deficits, Normal Mood Cerebellar Function: Normal Reflexes: Normal Skin: Dry, Normal Color, Warm Lymphatic: No Adenopathy Was a procedure done? Was a procedure done?: No Differential Dx Considerations may include: Differential diagnosis includes but is not limited to: ureteral colic / stone, Aortic aneurysm or dissection, pyelonephritis, acute renal failure, musculoskeletal etiology and others X-Ray, Labs, Meds, VS Vital Signs Date Time Temp Pulse Resp B/P (MAP) Pulse Ox O2 Delivery O2 Flow Rate FiO2 08/10/24 22:38 98.4 83 18 161/92 (115) 94 98.4 Lab Test 08/10/24 22:44 Range/Units Urine Color Dark-yellow Yellow Urine Clarity Clear Clear Urine pH 6.0 5.0-9.0 Urine Specific [place] 1.026 1.001-1.035 Urine Protein Negative Negative Urine Ketones Negative Negative Urine Blood Negative Negative /uL Urine Nitrite Negative Negative Urine Bilirubin Negative Negative Urine Urobilinogen Normal Negative mg/dL Urine Leukocyte Esterase Negative Negative /uL Urine RBC 2 0 - 3 /hpf Urine Microscopic WBC < 1 0-3 /HPF Urine Squamous Epithelial Cells Few <5 /hpf Urine Bacteria None seen None Seen /hpf Urine Sperm Present None Seen /hpf Urine Glucose Normal Normal mg/dL Time of 1ST Reevaluation: 23:02 Reevaluation 1ST: Unchanged Patient Education/Counseling: Diagnosis, Treatment Family Education/Counseling: No Family Present Departure 1 Departure Time of Disposition: 01:00 Impression: Primary Impression: Dysuria Additional Impression: Prostatitis syndrome Disposition: 01 HOME / SELF CARE / HOMELESS Condition: Stable e-Prescriptions Ciprofloxacin Hcl (Cipro) 250 Mg Tab 250 MG PO BID for 10 Days, #20 TAB Prov: NILA HAIDER MD 08/10/24 Discharged With: Self Critical Care Note Critical Care Time?: No Stability Stability form required: No I personally scribed for NILA HAIDER MD ([email or web address]) on 08/10/24 at 22:36. Electronically submitted by Tim Salcedo ([email or web address]). NILA HAIDER MD August 10, 2024 22:36
[2024-08-10 22:44] LABS: Urine Bacteria None Seen /hpf (None Seen)
[2024-08-10 23:02] LABS: Urine Blood Negative /uL (Negative); Urine Clarity Clear (Clear); Urine Color Dark-Yellow (Yellow); Urine Protein, UAD Negative (Negative); Urine Specific Gravity 1.026 (1.001-1.035); Urine Sperm PRESENT /hpf (None Seen); Urine Squamous Epithelial Cell FEW /hpf (<5); Urine Urobilinogen Normal (Negative); Urine WBC < 1 /HPF (0-3)
[2024-08-10] MEDS ORDERED: CIPR-273 PO (23:49)
[2024-08-11] MEDS: CIPROFLOXACIN HYDROCHLORIDE 250 MG TAB PO ONE ×2
[2024-08-11 04:22] VITALS: BP 147/79; PULSE 77; RESP 18; TEMP 97.4; O2SAT 98
== END 2024-08-11 04:31 | disposition home or self-care (01) ==
LOC: ER 22:16
DX: R30.0 Dysuria (principal); N42.82 Prostatosis syndrome; E11.9 Type 2 diabetes mellitus without complications; I10 Essential (primary) hypertension; E78.5 Hyperlipidemia, unspecified; Z79.899 Other long term (current) drug therapy
CPT/HCPCS: 81001

== ENCOUNTER 2024-08-17 10:43 | Inpatient (IN) | payer OTHER, MEDICAID ==
[~2024-08-17] VITALS: Ht 165.1 cm; Wt 86.3 kg
[~2024-08-17 10:43] MED LIST changes: +CIPR-273 PO
--- NOTE | 2024-08-17 12:01 | DVH ---
CLINICAL INFORMATION: 69 years old, Male; injury. TECHNIQUE: Axial imaging was obtained through the brain without contrast. Coronal and sagittal reform atted images were obtained, reviewed, and stored. Images were reviewed in brain and bone windows. Al l CT scans at this medical facility are performed using dose modulation techniques as appropriate to a performed exam including the following: Automated exposure control was utilized; adjustment of the MA and/or KV according to patient size; and use of iterative reconstruction technique. CTDIvol = 53.1 mGy DLP = 852.39 mGy-cm COMPARISON: HEAD WITHOUT CONTRAST on DOS: 09/25/19 FINDINGS: There is no acute intracranial hemorrhage. No mass effect or midline shift. Scattered areas of hypoattenuation are seen in the periventricular and subcortical white matter, which are nonspecif ic but most likely sequelae of small vessel ischemic disease. The ventricles and sulci are within nor mal limits in size for age. Basal cisterns are patent. The calvarium is unremarkable. Paranasal sinu ses and mastoid air cells are clear. IMPRESSION: No CT evidence of acute intracranial abnormality.
[2024-08-17 12:07] LABS: Basophils # (auto) 0 10 ^3/uL (0-0.2); Basophils % (auto) 0.3 % (0.0-2.0); Eosinophils # (auto) 0 10 ^3/uL (0-0.8); Eosinophils % (auto) 0.5 % (0.0-7.0); Hematocrit 43.5 % (41.0-53.0); Hemoglobin 14.5 g/dL (13.5-17.5); Lymphocytes # (auto) 1.1 10 ^3/uL (0.4-5.4); Lymphocytes % (auto) 18.9 % (10.0-50.0); Mean Corpuscular Hemoglobin 27.2 pg (28.0-32.0); Mean Corpuscular Hgb Conc. 33.4 g/dL (32.0-36.0); Mean Corpuscular Volume 81.4 fL (80.0-100.0); Monocytes # (auto) 0.4 10 ^3/uL (0-1.3); Monocytes % (auto) 6.3 % (0.0-12.0); Neutrophils # (auto) 4.1 10 ^3/uL (1.6-8.6); Nucleated Red Blood Cells % 0.1 %; Platelet Count (auto) 236 10^3/uL (140-450); Red Blood Cells 5.34 10^6/uL (4.5-5.90); Red Cell Distribution Width 16.1 % (11.8-14.3); White Blood Cell 5.6 10^3/uL (4.4-10.8)
[2024-08-17 12:15] LABS: Chloride 105 mmol/L (98-107); Potassium 4.6 mmol/L (3.5-5.1); Sodium 138 mmol/L (136-145)
[2024-08-17 12:16] LABS: Anion Gap 6 (5-15); Carbon Dioxide 27 mmol/L (20-31)
[2024-08-17 12:21] LABS: BUN/Creatinine Ratio 13.4 (10.0-20.0); Blood Urea Nitrogen 13 mg/dL (9-23)
--- NOTE | 2024-08-17 12:28 | ED.PDOC ---
Musculoskeletal HPI Comments 69y M who presents to the ED for chief complaint of fall injury. Pt states he had fall at [facility] approx 1 hours prior after he got dizzy. Pt denies any associated loss of consciousness and states he fell onto his knees but did not hit head. Pt states he is having pain in bilteral kness, rating the pain 7/10, but otherwise states he is having headache but denies any other symptoms. Pt is ax0x4 but states he feels weak. Pt otherwise denies any other symptoms at this time. Chief Complaint: Fall Injury Time Seen by MD: 12:22 Primary Care Provider: UNKNOWN Reviewed Notes: Medications, Allergies Allergies: Coded Allergies: NO KNOWN ALLERGIES (Unverified , 04/20/18) Home Meds Active Scripts Ciprofloxacin Hcl (Cipro) 250 Mg Tab, 250 MG PO BID for 10 Days, #20 TAB Prov:NILA HAIDER MD 08/10/24 Doxycycline Hyclate (DOXYCYCLINE HYCLATE) 100 Mg Tab, 1 TAB PO BID for 10 Days, #20 TAB Prov:YAMIL EUBANKS S DO 04/05/23 Acetaminophen (Acetaminophen Extra Stren) 500 Mg Tab, 500 MG PO QIDPRN for 10 Days, #40 TAB Prov:YAMIL EUBANKS S DO 04/05/23 Sitagliptin Phosphate (Januvia) 100 Mg Tab, 1 TAB PO DAILY, #90 TAB 1 Refill Prov:ZEUS GARCIA MD 12/26/22 Reported Medications Temazepam (Restoril) 15 Mg Cp, 1 CAP PO QPM, #30 CAP 1 Refill 12/22/18 Metformin Hydrochloride (Metformin Hcl) 500 Mg Tab, 1000 MG PO BID for 30 Days, MG 12/22/18 Glipizide (Glipizide) 10 Mg Tab, 40 MG PO BID for 30 Days, MG 12/22/18 Information Source: Patient Mode of Arrival: Wheelchair Brought in by: family member Past Medical History PAST MEDICAL HISTORY: DM, High Lipids, HTN Surgical History: Denies all surgeries Family History Family History: Reviewed,noncontributory to illness, Unknown Social History Smoker: Non-Smoker Alcohol: Denies ETOH Use Drugs: Denies Drug Use Lives In: Home Constitutional: denies: chills, diaphoresis, fatigue, fever, malaise, sweats, weakness, others EENTM: denies: blurred vision, double vision, ear bleeding, ear discharge, ear drainage, ear pain, ear ringing, eye pain, eye redness, hearing loss, mouth pain, mouth swelling, nasal discharge, nose bleeding, nose congestion, nose pain, photophobia, tearing, throat pain, throat swelling, voice changes, others Respiratory: denies: cough, hemoptysis, orthopnea, SOB at rest, shortness of breath, SOB with excertion, stridor, wheezing, others 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: denies: chest pain, dizzy spells, diaphoresis, Dyspnea on exe rtion, edema, irregular heart beat, left arm pain, lightheadedness, palpitations, PND, syncope, others Gastrointestinal: denies: abdomen distended, abdominal pain, blood streaked bowels, constipated, diarrhea, dysphagia, difficulty swallowing, hematemesis, melena, nausea, poor appetite, poor fluid intake, rectal bleeding, rectal pain, vomiting, others Genitourinary: denies: burning, dysuria, flank pain, frequency, hematuria, incontinence, penile discharge, penile sore, pain, testicle pain, testicle swelling, urgency, others Neurological: denies: dizziness, fainting, headache, left sided numbness, left sided weakness, numbness, paresthesia, pre-existing deficit, right sided numbness, right sided weakness, seizure, speech problems, tingling, tremors, weakness, others Musculoskeletal: reports: joint pain, joint swelling; denies: back pain, gout, muscle pain, muscle stiffness, neck pain, others Integumetry: denies: bruises, change in color, change in hair/nails, dryness, laceration, lesions, lumps, rash, wounds, others Allergic/Immunocompromised: denies: Difficulty Healing, Frequent Infections, Hives, Itching, others Hematologic/Lymphatic: denies: anemia, blood clots, easy bleeding, easy bruising, swollen glands, others Endocrine: denies: excessive hunger, excessive sweating, excessive thirst, excessive urination, flushing, intolerance to cold, intolerance to heat, unexplained weight gain, unexplained weight loss, others Psychiatric: denies: anxiety, bipolar disorder, depression, hopeless, panic disorder, schizophrenia, sleepless, suicidal, others All Other Systems: Reviewed and Negative Physical Exam General Appearance: No Apparent Distress, Normal HEENT: Normal ENT Inspection, Pharynx Normal, TMs Normal Neck: Full Range of Motion, Non-Tender, Normal, Normal Inspection Respiratory: Chest Non-Tender, Lungs Clear, No Accessory Muscle Use, No Respiratory Distress, Normal Breath Sounds 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: No Edema, No JVD, No Murmur, No Gallop, Normal Peripheral Pulses, Regular Rate/Rhythm Breast Exam: Deferred Gastrointestinal: No Organomegaly, Non Tender, No Pulsatile Mass, Normal Bowel Sounds, Soft Genitalia: Deferred Pelvic: Deferred Rectal: Deferred Extremities: No calf tenderness, Normal capillary refill, Normal inspection, Normal range of motion, Non-tender, No pedal edema Musculoskeletal : Apperance: Normal Neurologic: Alert, 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 Was a procedure done?: No Differential Diagnosis EXT Differential Diagnosis: Fracture, Sprain, Dislocation, DJD, Strain, Neurovascular injury Other Differential Diagnosis closed head injury, metabolic encephalopathy, cva, failure to thrive, intracranial bleed, intracranial mass X-Ray, Labs, Meds, VS Vital Signs Date Time Temp Pulse Resp B/P (MAP) Pulse Ox O2 Delivery O2 Flow Rate FiO2 08/17/24 11:05 98.8 79 18 178/82 (114) 93 98.8 Lab Test 08/17/24 11:46 08/17/24 11:08 Range/Units White Blood Count 5.6 4.4-10.8 10^3/uL Red Blood Count 5.34 4.5-5.90 10^6/uL Hemoglobin 14.5 13.5-17.5 g/dL Hematocrit 43.5 41.0-53.0 % Mean Corpuscular Volume 81.4 80.0-100.0 fL Mean Corpuscular Hemoglobin 27.2 L 28.0-32.0 pg Mean Corpuscular Hemoglobin Concent 33.4 32.0-36.0 g/dL Red Cell Distribution Width 16.1 H 11.8-14.3 % Platelet Count 236 140-450 10^3/uL Mean Platelet Volume 6.9 6.9-10.8 fL Neutrophils (%) (Auto) 74.0 37.0-80.0 % Lymphocytes (%) (Auto) 18.9 10.0-50.0 % Monocytes (%) (Auto) 6.3 0.0-12.0 % Eosinophils (%) (Auto) 0.5 0.0-7.0 % Basophils (%) (Auto) 0.3 0.0-2.0 % Neutrophils # (Auto) 4.1 1.6-8.6 10 ^3/uL Lymphocytes # (Auto) 1.1 0.4-5.4 10 ^3/uL Monocytes # (Auto) 0.4 0-1.3 10 ^3/uL Eosinophils # (Auto) 0 0-0.8 10 ^3/uL Basophils # (Auto) 0 0-0.2 10 ^3/uL Nucleated Red Blood Cells 0.1 % Sodium Level 138 136-145 mmol/L Potassium Level 4.6 3.5-5.1 mmol/L Chloride Level 105 98-107 mmol/L Carbon Dioxide Level 27 20-31 mmol/L Anion Gap 6 5-15 Blood Urea Nitrogen 13 9-23 mg/dL Creatinine 0.97 0.700-1.30 mg/dL Glomerular Filtration Rate Calc 83 >90 mL/min BUN/Creatinine Ratio 13.4 10.0-20.0 Serum Glucose 243 H 74-106 mg/dL Calcium Level 10.0 8.7-10.4 mg/dL Troponin I High Sensitivity 6 </=54 ng/L POC Glucose 210 H 70-106 mg/dl [place] [id number] Ph: [phone] DIAGNOSTIC IMAGING Diagnostic Imaging Report : [id number] Signed PATIENT: TONE NORTONACCT: [id number] UNIT: [id number] : 1955 LOC: ER ROOM / BED: / AGE / SEX: 69 / M ADM STATUS: REG ER SERVICE 1115 ORDERING PHYSICIAN: ANIKET GOMEZ MD PROCEDURE(s): HWOCT - HEAD WITHOUT CONTRAST REASON: injury ORDER NUMBER(s): [id number], ACCESSION NUMBER(s): [id number] CLINICAL INFORMATION: 69 years old, Male; injury. TECHNIQUE: Axial imaging was obtained through the brain without contrast. C oronal and sagittal reformatted images were obtained, reviewed, and stored. Images were reviewed in brain and bone windows. All CT scans at this medical facility are performed using dose modulation techniques as appropriate to a performed exam including the following: Automated exposure control was utilized; adjustment of the MA and/or KV according to patient size; and use of iterative reconstruction technique. CTDIvol = 53.1 mGy DLP = 852.39 mGy-cm COMPARISON: HEAD WITHOUT CONTRAST on DOS: 09/25/19 FINDINGS: There is no acute intracranial hemorrhage. No mass effect or midline shift. Scattered areas of hypoattenuation are seen in the periventricular and subcortical white matter, which are nonspecific but most likely sequelae of small vessel ischemic disease. The ventricles and sulci are within normal limits in size for age. Basal cisterns are patent. The calvarium is unremarkable. Paranasal sinuses and mastoid air cells are clear. IMPRESSION: No CT evidence of acute intracranial abnormality. ATED BY: LISANDRO CRANE DO DICTATED DATE/TIME: 08/17/24 1158 SIGNED BY: LISANDRO CRANE DO SIGNED DATE/TIME: 08/17/24 1158 CC: Time of 1ST Reevaluation: 13:00 Reevaluation 1ST: Unchanged Patient Education/Counseling: Diagnosis, Treatment, Prognosis, Need For Follow Up Family Education/Counseling: No Family Present Additional Information Previous visits reviewed: The following tests were ordered, and results were reviewed by me: cbc, bmp, tropx2, ekg x3, ct head w/ contrast, Additional Information was gathered from interviewing the following independent historians: none I reviewed and agreed with the following test results read by other providers: radiologist I discussed treatment and results with medical personnel and: patient Comprehensive systems review obtained and negative except for what is stated in the HPI. pt lives with his elderly and has been falling, reporting due to vertigo, however, he is unsafe for discharge and is still symptomatic. pt will be admitted for further evaluation Departure 1 Departure Time of Disposition: 13:01 Impression: Primary Impression: Falling Additional Impressions: Vertigo Weakness Disposition: ADMITTED INPATIENT Admit to: Tele Condition: Stable Discharged With: Self Critical Care Note Critical Care Time?: Yes (55 min-critical care time only) Critical care comment: Due to concerns for patients condition deteriorating, the care required my highest level of attention and readiness to intervene. I assessed the patient, reviewed the medical records, ordered the appropriate tests and treatments, then reassessed for results and responsiveness. I communicated with medical personnel and consultants and formulated a plan of care. Total critical care time excludes any procedures Stability Stability form required: No Heart Score Heart Score: Heart Score Response (Comments) Value History N/A 0 EKG N/A 0 Age N/A 0 Risk Factors N/A 0 Troponin N/A 0 Total 0 I personally scribed for ANIKET GOMEZ MD ([email or web address]) on 08/17/24 at 12:28. Electronically submitted by Marisa Anders ([email or web address]). ANIKET GOMEZ MD August 17, 2024 12:28
[2024-08-17 12:33] LABS: Glucose 243 mg/dL (74-106)
[2024-08-17] MEDS: MECLIZINE HCL 25 MG TAB PO ONE (13:12)
[2024-08-17] MEDS: ONDANSETRON ODT 4 MG TAB PO ONE (13:12)
[2024-08-17] MEDS ORDERED: NITROGLYCERIN 0.4 MG SL TAB SL PRN (15:45)
[2024-08-17] MEDS ORDERED: ONDANSETRON HCL 4 MG/2 ML VIAL IV PRN (15:45)
[2024-08-17] MEDS ORDERED: DEXTROSE (50%) 50ML SYRG IV PRN (15:45)
[2024-08-17] MEDS ORDERED: MORPHINE SULFATE INJ 2 MG/ml SYRG IV PRN (15:45)
[2024-08-17] MEDS ORDERED: ATOR-47 PO (15:46)
[2024-08-17] MEDS ORDERED: PREG50CA80 PO (15:46)
[2024-08-17] MEDS ORDERED: NIFE1TAB31 (15:46)
[2024-08-17] MEDS ORDERED: CARB200T4 PO (15:46)
[2024-08-17] MEDS ORDERED: DULO1CAP6 PO (15:46)
[2024-08-17] MEDS ORDERED: SERT-160 PO (15:46)
[2024-08-17] MEDS ORDERED: ATOR40TA52 PO (15:46)
[2024-08-17] MEDS ORDERED: ASPI-325 PO (15:46)
--- NOTE | 2024-08-17 15:50 | DVHHP2 ---
History of Present Illness Reason for Visit: Dizziness with bilateral knee pain History of Present Illness Conor Valdivia is a 69-year-old male with past medical history of hypertension, hyperlipidemia, diabetes, sister varicosis, obesity, CVA x2 with left-sided deficits who uses a cane with ambulation who presents to the ED with bilateral knee pain and dizziness status post fall at a [facility] today. Patient states that his bilateral knee pain is 7/10. Patient reports that he also hit his head on the ground but did not lose consciousness. He denies a headache. Upon examination bilateral knee abrasion noted. Patient also uses a quad cane. Patient denies chest pain, shortness of breath, fever, chills, abdominal pain, nausea, vomiting, diarrhea, lightheadedness, recent sick contacts, recent travels, or recent ingestion of spoiled food. 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 Endocrine: Diabetes Past Medical History Cysticercosis Obesity Past Surgical History: None Family History: Other (Patient does not know the history of parents) Smoke: No ALCOHOL: none Drugs: None Lives: with Family Domestic Violence: Neg Review of Systems Constitutional: Yes: Other Musculoskeletal: other Skin: Other (Abrasions of the knees) Allergies: Coded Allergies: NO KNOWN ALLERGIES (Unverified , 04/20/18) Medications Current Medications Medications Dose Ordered Sig/Abril Route Start Time Stop Time Status Last Admin Dose Admin Acetaminophen/ Hydrocodone Bitart 1 tab Q4HP PRN PO 08/17/24 15:45 UNV Ondansetron HCl 4 mg Q4HP PRN IV 08/17/24 15:45 UNV Enoxaparin Sodium 40 mg DAILY SC 08/18/24 10:00 UNV Acetaminophen 650 mg Q6HP PRN PO 08/17/24 15:45 UNV Nitroglycerin 0.4 mg Q5MINP PRN SL 08/17/24 15:45 UNV Morphine Sulfate 2 mg Q30M PRN IV 08/17/24 15:45 UNV Diagnostic Test (Pha) 1 strip ACHS 08/17/24 17:00 UNV Insulin Human Regular ACHS SC 08/17/24 17:00 UNV Dextrose 50 ml UD PRN IV 08/17/24 15:45 UNV Hydralazine HCl 10 mg Q6HP PRN IV 08/17/24 15:45 UNV Temazepam 15 mg QPM PO 08/17/24 18:00 UNV Exam Vital Signs Vital Signs Date Time Temp Pulse Resp B/P (MAP) Pulse Ox O2 Delivery O2 Flow Rate FiO2 08/17/24 13:20 Room Air* 0 21 08/17/24 13:05 97.5 86 16 159/87 (111) 94 97.5 General Appearance: Alert, Oriented X3, Cooperative, No acute distress HEENT: Atraumatic, PERRLA, EOMI, Mucous membr. moist/pink Respiratory: Clear to auscultation, Normal air movement 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: Normal S1, Normal S2 Abdominal: Soft Extremities: Normal pulses Neuro: Normal speech, Normal tone, Sensation intact Psych/Mental Status: Mental status NL, Mood NL Labs/Xrays Labs Test 08/17/24 12:57 08/17/24 11:46 08/17/24 11:08 Range/Units Troponin I High Sensitivity 7 </=54 ng/L White Blood Count 5.6 4.4-10.8 10^3/uL Red Blood Count 5.34 4.5-5.90 10^6/uL Hemoglobin 14.5 13.5-17.5 g/dL Hematocrit 43.5 41.0-53.0 % Mean Corpuscular Volume 81.4 80.0-100.0 fL Mean Corpuscular Hemoglobin 27.2 L 28.0-32.0 pg Mean Corpuscular Hemoglobin Concent 33.4 32.0-36.0 g/dL Red Cell Distribution Width 16.1 H 11.8-14.3 % Platelet Count 236 140-450 10^3/uL Mean Platelet Volume 6.9 6.9-10.8 fL Neutrophils (%) (Auto) 74.0 37.0-80.0 % Lymphocytes (%) (Auto) 18.9 10.0-50.0 % Monocytes (%) (Auto) 6.3 0.0-12.0 % Eosinophils (%) (Auto) 0.5 0.0-7.0 % Basophils (%) (Auto) 0.3 0.0-2.0 % Neutrophils # (Auto) 4.1 1.6-8.6 10 ^3/uL Lymphocytes # (Auto) 1.1 0.4-5.4 10 ^3/uL Monocytes # (Auto) 0.4 0-1.3 10 ^3/uL Eosinophils # (Auto) 0 0-0.8 10 ^3/uL Basophils # (Auto) 0 0-0.2 10 ^3/uL Nucleated Red Blood Cells 0.1 % Sodium Level 138 136-145 mmol/L Potassium Level 4.6 3.5-5.1 mmol/L Chloride Level 105 98-107 mmol/L Carbon Dioxide Level 27 20-31 mmol/L Anion Gap 6 5-15 Blood Urea Nitrogen 13 9-23 mg/dL Creatinine 0.97 0.700-1.30 mg/dL Glomerular Filtration Rate Calc 83 >90 mL/min BUN/Creatinine Ratio 13.4 10.0-20.0 Serum Glucose 243 H 74-106 mg/dL Calcium Level 10.0 8.7-10.4 mg/dL POC Glucose 210 H 70-106 mg/dl CLINICAL INFORMATION: 69 years old, Male; injury. TECHNIQUE: Axial imaging was obtained through the brain without contrast. Coronal and sagittal reformatted images were obtained, reviewed, and stored. Images were reviewed in brain and bone windows. All CT scans at this medical facility are performed using dose modulation techniques as appropriate to a performed exam including the following: Automated exposure control was utilized; adjustment of the MA and/or KV according to patient size; and use of iterative reconstruction technique. CTDIvol = 53.1 mGy DLP = 852.39 mGy-cm COMPARISON: HEAD WITHOUT CONTRAST on DOS: 09/25/19 FINDINGS: There is no acute intracranial hemorrhage. No mass effect or midline shift. Scattered areas of hypoattenuation are seen in the periventricular and subcortical white matter, which are nonspecific but most likely sequelae of small vessel ischemic disease. The ventricles and sulci are within normal limits in size for age. Basal cisterns are patent. The calvarium is unremarkable. Paranasal sinuses and mastoid air cells are clear. IMPRESSION: No CT evidence of acute intracranial abnormality. EXAM: XY R KNEE 3V XRAY CLINICAL INDICATION: pain TECHNIQUE: XY R KNEE 3V XRAY Comparison: None FINDINGS/IMPRESSION: There is no evidence of acute fracture or dislocation. The visualized joint space is well maintained. The alignment is anatomical. There is no radiopaque foreign body. EXAM: XY L KNEE 3V XRAY CLINICAL INDICATION: pain TECHNIQUE: XY L KNEE 3V XRAY Comparison: None FINDINGS/IMPRESSION: There is no evidence of acute fracture or dislocation. The visualized joint space is well maintained. The alignment is anatomical. There is no radiopaque foreign body. Assessment/Plan Assessment/Plan Assessment Autonomic imbalance Bilateral knee pain and abrasion status post mechanical fall Bilateral Knee contusions Hypertension Diabetes type 2 Obesity History of hyperlipidemia History of cysticercosis Plan Admit to med surge Antiemetics Pain management EKG Troponin negative x2 CT head noted Bilateral x-rays noted Hemoglobin A1c ISS and Accu-Cheks Antihypertensives UA X-ray bilateral knees Lovenox Echo ordered Chest x-ray ordered Diet Home medications reconciled DVT prophylaxis-Lovenox PUD prophylaxis-PPIs Discussed plan of care with patient and nurse Wound consult-bilateral knee abrasions Counseled patient on lifestyle modifications, diet, and exercise Plan discussed with: Patient My Orders Orders - GRICELDA TRUJILLO Procedure Category Date Status Time Admit ADMIT 08/17/24 Transmitted 15:[address] [facility] 08/17/24 In Process 15:41 Code Status CODE 08/17/24 Transmitted 15:41 Hydrocodone-Acet PHA 08/17/24 Logged 5/325mg Tab ([place] 15:45 Ondansetron Hcl PHA 08/17/24 Logged (Zofran) 15:45 Enoxaparin Sodium PHA 08/18/24 Logged (Lovenox) 10:00 Complete Blood Count LAB 08/18/24 Verified 04:00 Comprehensive LAB 08/18/24 Verified Metabolic Panel 04:00 Cardiac DIET 08/17/24 Transmitted Diet-2gna,Lofat,Lochol Dinner Acetaminophen Tablet PHA 08/17/24 Logged (Tylenol Tablet) 15:45 Nitroglycerin PHA 08/17/24 Logged Sublingual (Ntrostat 15:45 Morphine Sulfate PHA 08/17/24 Logged Injection 15:45 Stat Ekg For Chest [facility] 08/17/24 In Process Pain 15:41 Notify Md Of Changes ANUPAMA 08/17/24 In Process From Base 15:41 Potato Peeler For ANUPAMA 08/17/24 In Process 24 Hours 15:41 Emergency Dysrhythmia ANUPAMA 08/17/24 In Process Protocol 15:41 Rhythm Strips Once ANUPAMA 08/17/24 In Process Every Shift 15:41 Oxygen By Nasal RT 08/17/24 Transmitted Cannula 15:41 Echo 2d Mode Cardiac US 08/17/24 Logged DOP 15:41 R Knee 3v Xray XY 08/17/24 Logged 15:41 L Knee 3v Xray XY 08/17/24 Logged 15:41 Glucose Blood PHA 08/17/24 Logged (Accu-Chek Comfort 17:00 Insulin R (Human) PHA 08/17/24 Logged (Insulin R) 17:00 Dextrose 50% Syringe PHA 08/17/24 Logged 15:45 Hemoglobin A1c LAB 08/17/24 Logged 15:41 Urinalysis LAB 08/17/24 Logged 15:41 Hydralazine Injection PHA 08/17/24 Logged (Apresoline Inject 15:45 Temazepam (Restoril) PHA 08/17/24 Logged 18:00 Aspirin Enteric PHA 08/18/24 Verified Coated Tablet 10:00 Carbamazepine Tablet PHA 08/18/24 Verified (Tegretol Tablet) 10:00 Nifedipine Er PHA 08/18/24 Verified (Procardia Xl 10:00 (Nf) Atorvastatin PHA 08/18/24 Verified Calcium 10:00 (Nf) Atorvastatin PHA 08/18/24 Verified Calcium 10:00 (Nf) Duloxetine Hcl PHA 08/18/24 Verified 10:00 (Nf) Sertraline Hcl PHA 08/18/24 Verified 10:00 Date of Service: August 17, 2024 Billing Provider: GRICELDA TRUJILLO Common Visit Codes: [id number] INP/OBS CARE (HIGH) GRICELDA TRUJILLO August 17, 2024 15:50
--- NOTE | 2024-08-17 16:30 | DVH ---
EXAM: XY R KNEE 3V XRAY CLINICAL INDICATION: pain TECHNIQUE: XY R KNEE 3V XRAY Comparison: None FINDINGS/IMPRESSION: There is no evidence of acute fracture or dislocation. The visualized joint space is well maintained. The alignment is anatomical. There is no radiopaque foreign body.
--- NOTE | 2024-08-17 16:30 | DVH ---
EXAM: XY L KNEE 3V XRAY CLINICAL INDICATION: pain TECHNIQUE: XY L KNEE 3V XRAY Comparison: None FINDINGS/IMPRESSION: There is no evidence of acute fracture or dislocation. The visualized joint space is well maintained. The alignment is anatomical. There is no radiopaque foreign body.
[2024-08-17] MEDS: PANTOPRAZOLE 40 MG/10 ML VIAL INJ IV SCH (17:00)
[2024-08-17] MEDS: ACCU-CHEK COMFORT CURVE STRIP VI SCH (17:00)
[2024-08-17 17:40] VITALS: PULSE 83; RESP 16; O2SAT 96
--- NOTE | 2024-08-17 18:02 | DVH ---
CHEST RADIOGRAPH Indication: baseline Technique: Single frontal view of the chest was obtained COMPARISON: None FINDINGS: Lines and Tubes: None Lungs: Clear Pleura: No effusion. No pneumothorax. Cardiomediastinal contours: Unremarkable Bones: Unremarkable IMPRESSION: No acute disease.
[2024-08-17] MEDS: carBAMazepine 200 MG TAB PO SCH (18:33)
[2024-08-17] MEDS: InsuLIN REG 1unit/0.01ml Soln (100units/ml) SC SCH (18:43)
[2024-08-17 20:00] VITALS: PULSE 86; RESP 16; O2SAT 96
[2024-08-17 21:00] VITALS: BP 146/88; PULSE 85; RESP 17; TEMP 97.8; O2SAT 90
[2024-08-17] MEDS: TEMAZEPAM 15 MG CAP PO SCH (21:27)
[2024-08-17] MEDS: ATORVASTATIN 20 MG TAB PO SCH (21:27)
[2024-08-17 22:08] LABS: Urine Bacteria None Seen /hpf (None Seen)
[2024-08-17 22:35] LABS: Urine Blood Negative /uL (Negative); Urine Clarity Clear (Clear); Urine Color Light-Yellow (Yellow); Urine Protein, UAD Negative (Negative); Urine Squamous Epithelial Cell None Seen /hpf (<5); Urine Urobilinogen Normal (Negative); Urine WBC 1 /HPF (0-3)
[2024-08-18] VITALS (8 sets, daily range): BP systolic 127–164; BP diastolic 78–88; PULSE 66–85; RESP 16–18; TEMP 97.3–98.1; O2SAT 91–98
[2024-08-18] MEDS: hydrALAZINE HCL 20 MG/ML VL IV PRN (05:04)
[2024-08-18] MEDS: ACETAMINOPHEN 325 MG TAB PO PRN (06:04)
[2024-08-18 06:21] LABS: Basophils # (auto) 0 10 ^3/uL (0-0.2); Basophils % (auto) 0.3 % (0.0-2.0); Eosinophils # (auto) 0.1 10 ^3/uL (0-0.8); Eosinophils % (auto) 1.7 % (0.0-7.0); Hematocrit 40.6 % (41.0-53.0); Hemoglobin 13.8 g/dL (13.5-17.5); Lymphocytes # (auto) 2.3 10 ^3/uL (0.4-5.4); Lymphocytes % (auto) 34.8 % (10.0-50.0); Mean Corpuscular Hemoglobin 27.7 pg (28.0-32.0); Mean Corpuscular Volume 81.5 fL (80.0-100.0); Monocytes # (auto) 0.6 10 ^3/uL (0-1.3); Monocytes % (auto) 8.8 % (0.0-12.0); Neutrophils # (auto) 3.6 10 ^3/uL (1.6-8.6); Neutrophils % (auto) 54.4 % (37.0-80.0); Nucleated Red Blood Cells % 0.2 %; Platelet Count (auto) 218 10^3/uL (140-450); Red Blood Cells 4.98 10^6/uL (4.5-5.90); Red Cell Distribution Width 15.7 % (11.8-14.3); White Blood Cell 6.6 10^3/uL (4.4-10.8)
[2024-08-18 06:33] LABS: Alanine Aminotransferase 32 U/L (7-40); Albumin 4.3 g/dL (3.2-4.8); Alkaline Phosphatase 66 U/L (46-116); Anion Gap 7 (5-15); Aspartate Aminotransferase 26 U/L (13-40); BUN/Creatinine Ratio 16.5 (10.0-20.0); Blood Urea Nitrogen 16 mg/dL (9-23); Carbon Dioxide 28 mmol/L (20-31); Chloride 103 mmol/L (98-107); Potassium 4.1 mmol/L (3.5-5.1); Sodium 138 mmol/L (136-145); Total Protein 6.8 g/dL (5.7-8.2)
[2024-08-18 06:39] LABS: Bilirubin, Total 0.2 mg/dL (0.2-1.0); Glucose 139 mg/dL (74-106)
--- NOTE | 2024-08-18 09:26 | DVH ---
Indication: FALL Technique: 3 views left hip Comparison: None FINDINGS/IMPRESSION: No radiographic evidence for acute fracture or dislocation. There are [id number] degenerative changes of the bilateral hips. [id number] bilateral sacroiliac degenerative joint disease.
[2024-08-18] MEDS ORDERED: PATIENTS OWN MEDICATION (Atorvastatin Calcium 1 TAB) PO SCH (10:00)
[2024-08-18] MEDS: ASPirin-EC 81 mg tab PO SCH (10:27)
[2024-08-18] MEDS: DULoxetine HCL 30 MG CAP PO SCH (10:28)
[2024-08-18] MEDS: ENOXAPARIN SOD 40 MG/0.4 ML SYRINGE SC SCH (10:28)
[2024-08-18] MEDS: NIFEdipine ER 30 MG TAB PO SCH (10:28)
[2024-08-18] MEDS: SERTRALINE HCL 50 MG TAB PO SCH (10:29)
[2024-08-18] MEDS: HYDROcodone-ACET 5/325MG TAB PO PRN (10:35)
--- NOTE | 2024-08-18 21:47 | DVHPN2 ---
Reviewed: Care Plan, H&P, Labs, Medications, Previous Orders, Radiology Changes from previous H/P or p: No Changes General: Per HPI Musculoskeletal: other Skin: Other (Abrasions of the knees) Objective Vitals Vital Signs Date Time Temp Pulse Resp B/P (MAP) Pulse Ox O2 Delivery O2 Flow Rate FiO2 08/18/24 21:00 97.3 74 17 144/80 (101) 98 97.3 08/18/24 20:20 Room Air* 0 21 Intake/Output Intake and Output 08/18/24 07:00 Intake Total 600 ml Balance 600 ml Intake Oral 600 ml General Appearance: Alert, Cooperative 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: Regular rate, Normal S1, Normal S2 Neuro: Normal speech Medications Current Medications Medications Dose Ordered Sig/Abril Route Start Time Stop Time Status Last Admin Dose Admin Acetaminophen/ Hydrocodone Bitart 1 tab Q4HP PRN PO 08/17/24 15:45 08/18/24 20:28 1 TAB Ondansetron HCl 4 mg Q4HP PRN IV 08/17/24 15:45 Enoxaparin Sodium 40 mg DAILY SC 08/18/24 10:00 08/18/24 10:28 40 MG Acetaminophen 650 mg Q6HP PRN PO 08/17/24 15:45 08/18/24 06:04 650 MG Nitroglycerin 0.4 mg Q5MINP PRN SL 08/17/24 15:45 Morphine Sulfate 2 mg Q30M PRN IV 08/17/24 15:45 Diagnostic Test (Pha) 1 strip ACHS 08/17/24 17:00 08/18/24 21:17 1 STRIP Insulin Human Regular ACHS SC 08/17/24 17:00 08/18/24 21:17 6 UNITS Dextrose 50 ml UD PRN IV 08/17/24 15:45 Hydralazine HCl 10 mg Q6HP PRN IV 08/17/24 15:45 08/18/24 05:04 10 MG Temazepam 15 mg HS PO 08/17/24 22:00 08/18/24 21:12 15 MG Aspirin 81 mg DAILY PO 08/18/24 10:00 08/18/24 10:27 81 MG Carbamazepine 200 mg QID PO 08/17/24 18:00 08/18/24 21:12 200 MG Nifedipine 30 mg DAILY PO 08/18/24 10:00 08/18/24 10:28 30 MG Atorvastatin Calcium 80 mg HS PO 08/17/24 22:00 08/18/24 21:12 80 MG Duloxetine HCl 60 mg DAILY PO 08/18/24 10:00 08/18/24 10:28 60 MG Sertraline HCl 100 mg DAILY PO 08/18/24 10:00 08/18/24 10:29 100 MG Pantoprazole Sodium 40 mg DAILY IV 08/17/24 17:00 08/18/24 10:28 40 MG Laboratory Results Laboratory Tests 08/18/24 04:22 Chemistry Test 08/18/24 04:22 Albumin 4.3 g/dL (3.2-4.8) Calcium Level 10.0 mg/dL (8.7-10.4) Total Protein 6.8 g/dL (5.7-8.2) LFT Test 08/18/24 04:22 Alanine Aminotransferase (ALT) 32 U/L (7-40) Alkaline Phosphatase 66 U/L (46-116) Aspartate Amino Transferase (AST) 26 U/L (13-40) Total Bilirubin 0.2 mg/dL (0.2-1.0) Urinalysis Test 08/17/24 21:54 Urine Color Light-yellow (Yellow) Urine Clarity Clear (Clear) Urine pH 7.0 (5.0-9.0) Urine Specific [place] 1.020 (1.001-1.035) Urine Protein Negative (Negative) Urine Ketones Negative (Negative) Urine Blood Negative /uL (Negative) Urine Nitrite Negative (Negative) Urine Bilirubin Negative (Negative) Urine Urobilinogen Normal mg/dL (Negative) Urine Leukocyte Esterase Negative /uL (Negative) Urine RBC 2 /hpf (0 - 3) Urine Microscopic WBC 1 /HPF (0-3) Urine Squamous Epithelial Cells None seen /hpf (<5) Urine Bacteria None seen /hpf (None Seen) Urine Glucose 4+ mg/dL (Normal) H Labs and/or images reviewed: Labs reviewed by me, Image(s) reviewed by me Assessment/Plan Assessment/Plan Conor Valdivia is a 69-year-old male with past medical history of hypertension, hyperlipidemia, diabetes, sister varicosis, obesity, CVA x2 with left-sided deficits who uses a cane with ambulation who presents to the ED with bilateral knee pain and dizziness status post fall at a [employer] today. Patient states that his bilateral knee pain is 7/10. Patient reports that he also hit his head on the ground but did not lose consciousness. He denies a headache. Upon examination bilateral knee abrasion noted. Patient also uses a quad cane. Patient denies chest pain, shortness of breath, fever, chills, abdominal pain, nausea, vomiting, diarrhea, lightheadedness, recent sick contacts, recent travels, or recent ingestion of spoiled food. Autonomic imbalance Bilateral knee pain and abrasion status post mechanical fall Bilateral Knee contusions Hypertension Diabetes type 2 Obesity History of hyperlipidemia History of cysticercosis syncope 08/18/2024 continue with current care neurology consulted Plan discussed with: Patient My Orders Orders - FORREST LARES DO Procedure Category Date Status Time Apply Barrier Cream ANUPAMA 08/18/24 In Process 11:12 Date of Service: Aug 18, 2024 Billing Provider: FORREST LARES DO Common Visit Codes: [id number] INP/OBS CARE(HIGH) FORREST LARES DO Aug 18, 2024 21:47
[2024-08-19 05:00] VITALS: BP 160/79; PULSE 74; RESP 18; TEMP 97.1; O2SAT 97
[2024-08-19 08:00] VITALS: PULSE 78; RESP 18; O2SAT 97
--- NOTE | 2024-08-19 08:18 | DVHSR ---
APPROVED REPORT EXAM: LIMITED Two-dimensional and M-mode echocardiogram with Doppler and color Doppler. Blood Pressure: 161/83 mmHg INDICATION Dizziness and Vertigo RISK FACTORS Obesity: Height: 5' 5", Weight: 180 DIMENSIONS LVDd4.8 (3.8-5.7cm)LA (2D)3.7 (1.9-4.0cm)Aortic Root3.5 (2.0-3.7cm) LVDs3.4 (2.5-4.0cm)LA (MM) (1.9-4.0cm)Aortic Cusp Exc1.5 (1.5-2.0cm) EF (%) 55.0 (55-70%)Rt. Atrium3.8 (1.9-4.0cm)Asc. Aorta cm IVSd0.8 (0.7-1.1cm)RV (D) (1.8-2.4cm) PWd0.9 (0.7-1.1cm) Mitral Valve MitralMitral Stenosis E wave0.70m/sMV Mean GR.mmHg A wave1.00m/sMV Peak GR.mmHg E/A ratio0.72D MVAcm2 Aortic Valve Aortic ValveAortic Stenosis V11.40m/Deloris Mean GR.5mmHg V21.40m/Deloris Peak GR.8mmHg LVOT Diameter2.2 (1.8-2.4cm)Doppler AVA3.80cm2 Pulmonic Valve V20.50m/s Other Information Quality : Technically LimitedRhythm : Technically limited study due to body habitus and patient position. Conclusion lvef 55% by visual estimate mild to moderate LVH RV enlarged left atrium l enlargement no severe valve abnormalities noted limtited quality study
[2024-08-19 08:30] VITALS: BP 154/77; PULSE 78; RESP 18; TEMP 97.8; O2SAT 100
--- NOTE | 2024-08-19 08:47 | DVHDS2 ---
Discharge Summary Date of Admission August 17, 2024 at 15:41 Date of Discharge: Aug 19, 2024 Labs/Diagnostic Data: Laboratory Results Test 08/19/24 06:21 08/18/24 04:22 08/17/24 21:54 08/17/24 12:57 POC Glucose 162 mg/dl (70-106) White Blood Count 6.6 10^3/uL (4.4-10.8) Red Blood Count 4.98 10^6/uL (4.5-5.90) Hemoglobin 13.8 g/dL (13.5-17.5) Hematocrit 40.6 % (41.0-53.0) Mean Corpuscular Volume 81.5 fL (80.0-100.0) Mean Corpuscular Hemoglobin 27.7 pg (28.0-32.0) Mean Corpuscular Hemoglobin Concent 34.0 g/dL (32.0-36.0) Red Cell Distribution Width 15.7 % (11.8-14.3) Platelet Count 218 10^3/uL (140-450) Mean Platelet Volume 7.3 fL (6.9-10.8) Neutrophils (%) (Auto) 54.4 % (37.0-80.0) Lymphocytes (%) (Auto) 34.8 % (10.0-50.0) Monocytes (%) (Auto) 8.8 % (0.0-12.0) Eosinophils (%) (Auto) 1.7 % (0.0-7.0) Basophils (%) (Auto) 0.3 % (0.0-2.0) Neutrophils # (Auto) 3.6 10 ^3/uL (1.6-8.6) Lymphocytes # (Auto) 2.3 10 ^3/uL (0.4-5.4) Monocytes # (Auto) 0.6 10 ^3/uL (0-1.3) Eosinophils # (Auto) 0.1 10 ^3/uL (0-0.8) Basophils # (Auto) 0 10 ^3/uL (0-0.2) Nucleated Red Blood Cells 0.2 % Sodium Level 138 mmol/L (136-145) Potassium Level 4.1 mmol/L (3.5-5.1) Chloride Level 103 mmol/L (98-107) Carbon Dioxide Level 28 mmol/L (20-31) Anion Gap 7 (5-15) Blood Urea Nitrogen 16 mg/dL (9-23) Creatinine 0.97 mg/dL (0.700-1.30) Glomerular Filtration Rate Calc 83 mL/min (>90) BUN/Creatinine Ratio 16.5 (10.0-20.0) Serum Glucose 139 mg/dL (74-106) Calcium Level 10.0 mg/dL (8.7-10.4) Total Bilirubin 0.2 mg/dL (0.2-1.0) Aspartate Amino Transferase (AST) 26 U/L (13-40) Alanine Aminotransferase (ALT) 32 U/L (7-40) Alkaline Phosphatase 66 U/L (46-116) Total Protein 6.8 g/dL (5.7-8.2) Albumin 4.3 g/dL (3.2-4.8) Urine Color Light-yellow (Yellow) Urine Clarity Clear (Clear) Urine pH 7.0 (5.0-9.0) Urine Specific [place] 1.020 (1.001-1.035) Urine Protein Negative (Negative) Urine Ketones Negative (Negative) Urine Blood Negative /uL (Negative) Urine Nitrite Negative (Negative) Urine Bilirubin Negative (Negative) Urine Urobilinogen Normal mg/dL (Negative) Urine Leukocyte Esterase Negative /uL (Negative) Urine RBC 2 /hpf (0 - 3) Urine Microscopic WBC 1 /HPF (0-3) Urine Squamous Epithelial Cells None seen /hpf (<5) Urine Bacteria None seen /hpf (None Seen) Urine Glucose 4+ mg/dL (Normal) Troponin I High Sensitivity 7 ng/L (</=54) Test 08/17/24 11:46 Hemoglobin A1c 7.3 % A1C (<5.7) Other Laboratory Tests 08/18/24 04:22 Brief Hx & Hospital Course: Final diagnoses: Generalized weakness Old CVA Type 2 diabetes Hypertension Mixed hyperlipidemia Obesity Syncope was ruled out History of cysticercosis Bilateral knee contusions, no fracture Autonomic imbalance A 69-year-old male was admitted due to weakness and a fall that resulted in contusion to bilateral knees Workup with x-rays of the knees and chest x-ray and hip x-ray and CT scan of the head were all negative No new stroke Examination shows symmetric muscle strength in the upper and lower extremities He is able to ambulate with a walker He lives at home with his He is completely alert and oriented no complaints except for some mild headache right now Vital signs were stable with a slight elevation in the blood pressure At this time the patient is stable for discharge he can become and continue the aspirin and Lipitor and nifedipine and the rest of his home medications and follow up with his primary care physician as soon as possible for outpatient follow up He also says he has a referral as an outpatient for outpatient physical therapy which he is going to continue Stable for discharge Condition at Discharge: Stable Final Diagnosis/Problems List Generalized weakness Old CVA Type 2 diabetes Hypertension Mixed hyperlipidemia Discharge Disposition: Home SNF Discharge Will this Physician continue t: No Discharge Instruct/Medications Diet: Consistent carbohydrate, Cardiac 2g Na,low cholest Activity: No Restrictions, As Tolerated Follow Up/Referral: PCP [facility] Medications: Continue same home medications Discharge Statement: "Patient was advised to return to the ER or call 911 if any headaches, dizziness, shortness of breath, chest pain, abdominal pain, bleeding, fevers, or worsening of medical condition. Patient was counseled about treatment plan, medications, possible side effects, patientverbalized understanding. All questions were answered to the best of my ability. This discharge took greater then 30 minutes in planning, reviewing documentation, counseling the patient, and discussing with other team members." ASSESSMENT ASSESSMENT Assessment Generalized weakness Old CVA Type 2 diabetes Hypertension Mixed hyperlipidemia Date of Service: Aug 19, 2024 Billing Provider: ERGGIE NOLAND MD Common Visit Codes: 32369-PMG/OBS DISCH DAY >30min REGGIE NOLAND MD Aug 19, 2024 08:47
[2024-08-19 09:33] VITALS: BP 154/77; PULSE 78; RESP 18; TEMP 97.8; O2SAT 100
== END 2024-08-19 09:57 | disposition home or self-care (01) | DRG 74 ==
LOC: ER 10:43 → OVERFLOW 15:41 → WEST WING 15:45
PROVIDERS: ADMIT Internal Medicine Geriatric Medicine; ATTEND Internal Medicine Geriatric Medicine
DX: G90.89 Other disorders of autonomic nervous system (principal); B69.9 Cysticercosis, unspecified; S80.211A Abrasion, right knee, initial encounter; S80.212A Abrasion, left knee, initial encounter; E11.9 Type 2 diabetes mellitus without complications; E66.9 Obesity, unspecified; S80.01XA Contusion of right knee, initial encounter; S80.02XA Contusion of left knee, initial encounter; I10 Essential (primary) hypertension; E78.2 Mixed hyperlipidemia; Z79.2 Long term (current) use of antibiotics; Z79.1 Long term (current) use of non-steroidal anti-inflammatories (NSAID); Z79.899 Other long term (current) drug therapy; Z79.84 Long term (current) use of oral hypoglycemic drugs; Z68.31 Body mass index [BMI] 31.0-31.9, adult; Z86.73 Personal history of transient ischemic attack (TIA), and cerebral infarction without residual deficits; Y92.89 Other specified places as the place of occurrence of the external cause
CPT/HCPCS: 36415; 70450; 71045; 73502; 73562; 80048; 80053; 81001; 82962; 83036; 84484; 85025; 93306; 99291; G0378; J1815; J2470; Q0162

== ENCOUNTER 2025-03-10 17:29 | Emergency (ER) | payer OTHER, MEDICAID ==
[~2025-03-10] VITALS: Ht 165.1 cm; Wt 88.4 kg
[~2025-03-10 17:29] MED LIST changes: +ASPI-325 PO; +ATOR-47 PO; +ATOR40TA52 PO; +CARB200T4 PO; -CIPR-273 PO; -DOXY-286 PO; +DULO1CAP6 PO; +NIFE1TAB31; +PREG50CA80 PO; +SERT-160 PO
--- NOTE | 2025-03-10 18:12 | ED.PDOC ---
History of Present Illness HPI Comments A 69 year old male with PMHx of HTN, DM, and shingles presents to the emergency department for chief complaint of fall injury to R shoulder that occurred 3 days ago. Pt reports they have general weakness in the legs and was walking when he suddenly lost balance and fell over to his R shoulder. Pt reports R shoulder and R chest pain, non-radiating. Pt denies associated symptoms of shortness of breath, fever, chills, dizziness, or syncope. Chief Complaint: Fall Injury Time Seen by MD: 18:10 Primary Care Provider: UNKNOWN Reviewed Notes: Nurses Notes Allergies: Coded Allergies: NO KNOWN ALLERGIES (Unverified , 04/20/18) Home Meds Active Scripts Acetaminophen (Acetaminophen Extra Stren) 500 Mg Tab, 500 MG PO QIDPRN for 10 Days, #40 TAB Prov:YAMIL EUBANKS DO 04/05/23 Sitagliptin Phosphate (Januvia) 100 Mg Tab, 1 TAB PO DAILY, #90 TAB 1 Refill Prov:ZEUS GARCIA MD 12/26/22 Reported Medications Carbamazepine (Carbamazepine) 200 Mg Tab, TAB PO 08/17/24 Atorvastatin Calcium (ATORVASTATIN CALCIUM) 40 Mg Tab, 1 TAB PO DAILY 08/17/24 Aspirin (Aspirin Low Dose) 81 Mg Tab, 1 TAB PO DAILY 08/17/24 Duloxetine HCl (Duloxetine HCl) 60 Mg Cap, 1 CAP PO DAILY 08/17/24 Sertraline Hcl (Sertraline Hcl) 100 Mg Tab, 1 TAB PO DAILY 08/17/24 Atorvastatin Calcium (ATORVASTATIN CALCIUM) 80 Mg Tab, 1 TAB PO DAILY 08/17/24 Pregabalin (Pregabalin) 50 Mg Cap, CAP PO 08/17/24 Nifedipine (Nifedipine Er) 30 Mg Tab 08/17/24 Temazepam (Restoril) 15 Mg Cp, 1 CAP PO QPM, #30 CAP 1 Refill 12/22/18 Metformin Hydrochloride (Metformin Hcl) 500 Mg Tab, 1000 MG PO BID for 30 Days, MG 12/22/18 Glipizide (Glipizide) 10 Mg Tab, 40 MG PO BID for 30 Days, MG 12/22/18 Mode of Arrival: Ambulatory Past Medical History PAST MEDICAL HISTORY: DM, High Lipids, HTN Surgical History: Denies all surgeries Family History Family History: Reviewed,noncontributory to illness, Unknown Social History Smoker: Non-Smoker Alcohol: Denies ETOH Use Drugs: Denies Drug Use Lives In: Home Constitutional: denies: chills, diaphoresis, fatigue, fever, malaise, sweats, weakness, others EENTM: denies: blurred vision, double vision, ear bleeding, ear discharge, ear drainage, ear pain, ear ringing, eye pain, eye redness, hearing loss, mouth pain, mouth swelling, nasal discharge, nose bleeding, nose congestion, nose pain, photophobia, tearing, throat pain, throat swelling, voice changes, others Respiratory: denies: cough, hemoptysis, orthopnea, SOB at rest, shortness of breath, SOB with excertion, stridor, wheezing, others 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: reports: chest pain; denies: dizzy spells, diaphoresis, Dyspnea on exertion, edema, irregular heart beat, left arm pain, lightheadedness, palpitations, PND, syncope, others Gastrointestinal: denies: abdomen distended, abdominal pain, blood streaked bowels, constipated, diarrhea, dysphagia, difficulty swallowing, hematemesis, melena, nausea, poor appetite, poor fluid intake, rectal bleeding, rectal pain, vomiting, others Genitourinary: denies: burning, dysuria, flank pain, frequency, hematuria, incontinence, penile discharge, penile sore, pain, testicle pain, testicle swelling, urgency, others Neurological: denies: dizziness, fainting, headache, left sided numbness, left sided weakness, numbness, paresthesia, pre-existing deficit, right sided numbness, right sided weakness, seizure, speech problems, tingling, tremors, weakness, others Musculoskeletal: reports: joint pain (shoulder pain); denies: back pain, gout, joint swelling, muscle pain, muscle stiffness, neck pain, others Integumetry: denies: bruises, change in color, change in hair/nails, dryness, laceration, lesions, lumps, rash, wounds, others Allergic/Immunocompromised: denies: Difficulty Healing, Frequent Infections, Hives, Itching, others Hematologic/Lymphatic: denies: anemia, blood clots, easy bleeding, easy bruising, swollen glands, others Endocrine: denies: excessive hunger, excessive sweating, excessive thirst, excessive urination, flushing, intolerance to cold, intolerance to heat, unexplained weight gain, unexplained weight loss, others Psychiatric: denies: anxiety, bipolar disorder, depression, hopeless, panic disorder, schizophrenia, sleepless, suicidal, others All Other Systems: Reviewed and Negative Physical Exam General Appearance: No Apparent Distress, Normal HEENT: Normal ENT Inspection, Pharynx Normal, TMs Normal Neck: Full Range of Motion, Non-Tender, Normal, Normal Inspection Respiratory: Chest Non-Tender, Lungs Clear, No Accessory Muscle Use, No Respiratory Distress, Normal Breath Sounds 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: No Edema, No JVD, No Murmur, No Gallop, Normal Peripheral Pulses, Regular Rate/Rhythm Breast Exam: Deferred Gastrointestinal: No Organomegaly, Non Tender, No Pulsatile Mass, Normal Bowel Sounds, Soft Genitalia: Deferred Pelvic: Deferred Rectal: Deferred Extremities: NOT DONE (limited range of shoulder, tender R scapula) Neurologic: Alert, geographic area intelligence officer II-XII nml as Tested, No Motor Deficits, Normal Affect, Normal Mood, No Sensory Deficits Cerebellar Function: Normal Reflexes: Normal Skin: Dry, Normal Color, Warm Lymphatic: No Adenopathy Was a procedure done? Was a procedure done?: No Differential Dx Considerations may include: URI, influenza, COVID, strep throat, pharyngitis, pneumonia ,fracture X-Ray, Labs, Meds, VS Vital Signs Date Time Temp Pulse Resp B/P (MAP) Pulse Ox O2 Delivery O2 Flow Rate FiO2 03/10/25 17:35 98.2 96 19 141/82 93 98.2 X-Ray, Labs, Meds, VS Comment Imaging: X-rays and CT scans were reviewed and interpreted by this provider, imaging shows bilateral infiltrates. Pending radiology review. Laboratory: Labs reviewed and interpreted by this provider. No significant ab normalities noted. Patient has prior medical visits reviewed. Med reconciliation performed Vital signs reviewed Time of 1ST Reevaluation: 08:40 Reevaluation 1ST: Unchanged Patient Education/Counseling: Diagnosis, Treatment, Need For Follow Up (Follow up with PCP in next 2-3 days. Return to emergency department if symptoms worsen.) Family Education/Counseling: Diagnosis, Treatment, Need For Follow Up SEPSIS Sepsis Screen Date sepsis recognized/suspect: Mar 10, 2025 Time Sepsis recognized/suspect: 1734 Recent Procedure: No On Antibiotic Therapy: No Respiratory Rate >20: No Heart Rate >90: No Temp<36 C (96.8 F) or >38.3 C: No SBP <90 or MAP <65 mmHG: No New Acute Mental Status Change: No Is the patient on CPAP, BIPAP,: No Physician Orders Chest Xray 1 View (03/10/25 18:02) R Shoulder 2+ View Xray (03/10/25 18:02) Vital Signs Date Time Temp Pulse Resp B/P (MAP) Pulse Ox O2 Delivery O2 Flow Rate FiO2 03/10/25 17:35 98.2 96 19 141/82 93 98.2 Departure 1 Departure Time of Disposition: 19:14 Impression: Primary Impression: Pneumonia Qualified Codes: J18.9 - Pneumonia, unspecified organism Disposition: HOME / SELF CARE / HOMELESS Condition: Stable e-Prescriptions Ibuprofen (Ibuprofen) 800 Mg Tab 1 TAB PO TID, #30 TAB Prov: ABRAHAN MCDONOUGH 03/10/25 Albuterol Sulfate (Albuterol Sulfate Hfa) 108 Mcg/Act Aer 108 MCG IN TID PRN, #1 AER Prov: ABRAHAN MCDONOUGH 03/10/25 Amoxicillin & Pot Clavulanate (AUGMENTIN TABLET) 875 Mg Tb 875 MG PO BID for 7 Days, #14 TAB Prov: ABRAHAN MCDONOUGH 03/10/25 Discharged With: Self Critical Care Note Critical Care Time?: No Stability Stability form required: No Heart Score Heart Score: Heart Score Response (Comments) Value History N/A 0 EKG N/A 0 Age N/A 0 Risk Factors N/A 0 Troponin N/A 0 Total 0 I personally scribed for ABRAHAN MCDONOUGH ([email or web address]) on 03/10/25 at 18:12. Electronically submitted by Lisha Pittman ([email or web address]). ABRAHAN MCDONOUGH Mar 10, 2025 18:12
--- NOTE | 2025-03-10 18:53 | DVH ---
INDICATION: fall TECHNIQUE: XY R SHOULDER 2+ VIEW XRAYXY Comparison: None FINDINGS/IMPRESSION: No radiographic evidence for acute fracture or dislocation. There is moderate right AC joint arthrosis. Mild degenerate changes right glenohumeral joint. Small right pleural effusion.
--- NOTE | 2025-03-10 18:54 | DVH ---
CHEST RADIOGRAPH INDICATION: fall TECHNIQUE: XY CHEST XRAY 1 VIEW COMPARISON: None FINDINGS: The cardiac silhouette is enlarged. The lungs demonstrate bilateral patchy airspace opacities. The pulmonary vasculature is prominent. Small bilateral pleural effusions. Aortic atherosclerotic disease. There is no pneumothorax. IMPRESSION: As above
[2025-03-10] MEDS ORDERED: ALBU108A5 IN (19:16)
[2025-03-10] MEDS ORDERED: IBUP-1456 PO (19:16)
[2025-03-10] MEDS ORDERED: AUG875T PO (19:16)
[2025-03-10 19:57] VITALS: BP 139/84; PULSE 85; RESP 16; TEMP 98.5; O2SAT 95
== END 2025-03-10 20:08 | disposition home or self-care (01) ==
LOC: ER 17:29
DX: J18.9 Pneumonia, unspecified organism (principal); I10 Essential (primary) hypertension; E11.9 Type 2 diabetes mellitus without complications; E78.5 Hyperlipidemia, unspecified; Z79.899 Other long term (current) drug therapy; Z79.82 Long term (current) use of aspirin; Z79.84 Long term (current) use of oral hypoglycemic drugs
CPT/HCPCS: 71045; 73030